=== PATIENT | male | born 1965 | race Caucasian/White ===

== ENCOUNTER 2017-10-15 05:40 | Observation (INO) | payer OTHER ==
--- NOTE | 2017-10-02 10:55 | NUR ---
PATIENT HERE TODAY FOR PREADMISSION APPOINTMENT. PATIENT IS SCHEDULED FOR A RIGHT TOTAL KNEE REPLACEMENT ON 10/15/17. HE STATES HE HAS ATTENDED THE JOINT CLASS AND HAS PHYSICAL THERAPY SET UP FOR AFTER SURGERY. HIS ZANE WILL BE THE ONE TO TRANSPORT HIM HOME WHEN HE IS DISCHARGED AND TO APPOINTMENTS. THEY HAVE FOUR STEPS INTO THE HOME AND A HAND RAIL ON THE RIGHT SIDE GOING UP THE STEPS. THERE ARE NO STEPS INSIDE THE HOME. THEY HAVE A WALK IN SHOWER. WE SPOKE ABOUT GETTING A SHOWER BENCH BEFORE SURGERY. PATIENT WILL LOOK INTO GETTING ONE. HE STATES HE HAS HIS WALKER FROM HIS PAST HIP SURGERIES AND WILL BRING IT THE DAY OF SURGERY. THIS INFORMATION WILL BE SENT TO DR DOWNS OFFICE AND HI PLANNING FOR FURTHER FOLLOW UP.
[~2017-10-15] VITALS: Ht 182.9 cm; Wt 142.4 kg
[~2017-10-15 05:40] MED LIST: BACTRIM DS TAB1 EACH PO; CITALOPRAM HBR20 MG PO; GLIMEPIRIDE4 MG PO; JANUVIA100 MG PO; LANTUS100 UNITS/ SUB-Q; LISINOPRIL10 MG PO; METFORMIN HCL1000 MG PO; SIMVASTATIN40 MG PO; TRAMADOL HCL E300 MG PO; TRICOR145 MG PO; VITAMIN C1000 M2 PO
--- NOTE | 2017-10-15 08:48 | NUR ---
10/15/17 0848 Bozena Gonzalez 0833 PT ARRIVED TO PACU, AWAKE. PT DENIES PAIN OR NAUSEA. PT PLACED SEMI FOWLERS POSITION. 0839 CRYOCUFF PLACED TO RIGHT KNEE. O2 PLACED ON NC AT 2L. CBG 179. BREATHING EVEN AND NON LABORED.
--- NOTE | 2017-10-15 09:16 | NUR ---
PT ARRIVED FROM PACU AT 0916, HAND OFF REPORT TAKEN FROM SOFTWARE PROGRAMMER. PT DENIES PAIN AND NAUSEA. PT AWAKE AND CARING ON CONVERSATION WITH FAMILY AND THIS RN. ASSESSMENT DONE. HEEL PROTECTORS IN PLACE. PIV SALINE LOCKED PT IS TOELRATING PO FLUIDS WELL. PT DEMONSTARTES USE OF IS. SCD'S, CRYO CUFF, AND SALVATORE HOSE IN PLACE. DRESSING CDI. CRACKERS PROVIDED. PT TOLERATS WELL. PLAN OF CARE DISCUSSED WITH PT. PT AND FAMILY VERBALIZE UNDERSTANDING. KNEES ON BED LOCKED. BED RAILS UP. CALL LIGHT WITHIN REACH.
[2017-10-15] MEDS ORDERED: GLIMEPIRIDE2 MG PO (09:46)
--- NOTE | 2017-10-15 10:21 | NUR ---
DR. DOWNS CALLED WITH CBG RESULTS. DR. DOWNS STATES TO CONSULT HOSPITALIST REGARDING BLOOD SURGAR CHECKS AND MEDICAITONS. HOSPITALIST CALLED. ORDERS PLACED FOR CBG CHECKS WITH MEALS AND SLINDING SCALE INSULIN.
--- NOTE | 2017-10-15 11:07 | NUR ---
VITALS DUE. THIS RN TO BEDSIDE. PT REPORTS BEING HUNGRY. DENIES PAIN AND NAUSEA. PT TOLRATING CRACKERS, WATER, AND ICE CREAM. LUNCH ORDER PLACED FOR PT. CRYO CUFF ON, CALL LIGHT WITHIN REACH. FAMILY AT BEDSIDE.
--- NOTE | 2017-10-15 11:08 | NUR ---
Medications reconciled using pharmacy records and patient interview. 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
--- NOTE | 2017-10-15 12:14 | NUR ---
AFTERNOON ASSESSMENT AND VITALS DUE. THIS RN TO BEDSIDE. PT FINISHED WITH LUNCH. INSULIN GIVEN ORDERED (SEE MAR). ASSESSMENT DONE. DRESSING CDI, CRYO CUFF, SCD'S AND SALVATORE HOSE IN PLACE. PT DENIES PAIN AND NAUSEA. PT STATES "i"M READY FOR A NAP. WHILE THIS RN IS CHARTING PT DRIFTS OFF TO SLEEP. SNORING NOTED, O2 DROPS TO 86% ON ROOM AIR. 2L O2 NC APPLIED. PT MAINTAING ABOVE 92% EVEN WHILE SLEEPING. ICE IN CRYO CUFF REPLACED. BED RAILS UP. CALL LIGHT WITHIN REACH.
--- NOTE | 2017-10-15 13:21 | NUR ---
THIS RN TO BEDSIDE WITH PHYSICAL THERPAY. PT APPEARS DIAPHORETIC. BLOOD SURGAR TAKEN BEFORE PT GETS UP WITH PHYSICAL THERAPY. CBG = 236. PT STATES "I'M ALWAYS SWEETY LIKE THIS AT HOME. PT DENIES DIZZINESS OR LIGHTHEADEDNESS. CHARGE NURSE NOTIFIED AND STATES TO CONTINUE TO MONITOR FOR NOW, NO ACTION NEEDED. PT WORKING WITH PHYSICAL THERAPY. PT STATE HE HAS NO REQUESTS OR COMPLAINTS AT THIS TIME.
--- NOTE | 2017-10-15 13:54 | NUR ---
PT RESTING IN BED, WITH TV ON. HE IS ALERT AND ORIENTED, STATES HE HAS NO PAIN. HAS HAD JOINT REPLACEMENT BEFORE, THANKED ME FOR COMING BY, EXTENDED A BLESSING, WILL FOLLOW NEEDED
--- NOTE | 2017-10-15 14:28 | NUR ---
MEDICATIONS DUE. THIS RN TO BEDSIDE. PT ASSISTED WITH ATTEMPTING TO VOID, UNABLE TO DO SO. BLADDER SCANN YEILDS 245 ML. PT CONTINUS TO DRINK WATER. WILL CONTINUE TO MONITOR BLADDER AND VOIDING. MEDICATIONS GIVEN (SEE MAR). WATER REFILLED. PT RESTING WITH EYES CLOSED. O2 DROPS TO 86% WHILE SLEEPING. PT PLACED ON 2L O2 NC. PT MAINTAINING O2 SATURATION ABOVE 92%. CALL LIGHT WITHIN REACH. BED RAILS UP. CRYO CUFF, SCD'S REPLACED AFTER WORK WITH PHYSICAL THERAPY.
--- NOTE | 2017-10-15 14:52 | NUR ---
PATIENT AMBULATED WITH PTHERAPY. PATIENT DID TWO LARGE LAPS IN THE HALLWAY. PATIENT WAS UNABLE TO VOID. BLADDER SCANNED FOR 245ML. PATIENT NOW SITTING UP IN BED. FRESH ICE WATER. CALL LIGHT WITHIN REACH. NO OTHER NEEDS AT THIS TIME.
--- NOTE | 2017-10-15 16:50 | NUR ---
THIS RN TO ROOM FOR VOIDING/BLADDER ASSESSMENT. PT ASSISTED UP AT SIDE OF BED, 1P/SBA, FWW. PT UNABLE TO VOID. BLADDER SCAN INCONSISTANT. CHARGE NURSE CALLED TO ROOM, CHARGE NURSE UNABLE TO OBTAIN BLADDER SCAN. MD CALLED. MD STATES TO PLACE GAMBINO CATHETER. GAMBINO PLACED PER PROTOCOL. URO JET USED. 350ML OBTAINED FROM FOELY CATHETER PLACEMENT. PT TOELRATED WELL. ASSESSMENT DONE. CRYO CUFF, SCDS, SALVATORE HOSE IN PLACE. DRESSING CDI. PT REPORTS 7/10 PAIN (SEE MAR) FOR MEDICATION. BY THE END OF ASSESSMENT PT STATES PAIN IS NOW AT 4/10. PT DENIES NAUSEA AND IS EXCITED FOR DINNER. MEDICATIONS GIVEN (SEE MAR). FAMILY AT BEDSIDE. CALL LIGHT WITHIN REACH. BED RAILSUP.
--- NOTE | 2017-10-15 18:42 | NUR ---
PT HERE FOR R TKA. DRESSING CDI, CRYO CUFF, SCD'S SALVATORE HOSE IN PLACE. PT UP WITH PHYSICAL THERAPY TODAY, AMBULATED X2 AROUND HERRERA. PT REPORTED 7/10 PAIN THIS AFTERNOON WITH GOOD RESOLUTION WITH DILAUDID. SPINAL RESOLVED AND PROTOCOL UP AT 1700. BLOOD SUGAR CHECKS, WITH SLINDING SCALE INSULIN. GAMBINO PLACED FOR INABILITY TO VOID. USES CALL LIGHT APPROPRIATLY.
--- NOTE | 2017-10-15 19:33 | NUR ---
BEDSIDE REPORT RECEIVED FROM MEMO SWANN. PT SNORING, BREATHING EQUAL BILATERALLY, SPO2 97% ON 2L, HR 74. SCDS, CRYO CUFF WITH ICE INPLACE, HEEL PROTECTORS ON. IV SALINE LOCKED. GAMBINO DRAINING. WILL CONTINUE TO MONITOR.
--- NOTE | 2017-10-15 20:40 | NUR ---
PT ASSESSMENT COMPLETE, PT RATES PAIN 7/10 IN RIGHT KNEE WITH PAIN GOAL 7/10, STATES PAIN ONLY WITH MOVEMENT. PILLOW NOTED NEXT TO RIGHT KNEE, PT EDUCATION PROVIDED FOR NO PILLOW UNDER EXTREMITY, PT VERBALIZES UNDERSTANDING. PRN TORADOL ADMINISTERED AT THIS TIME PT DROWSY. DRESSING CDI WITH DENA WRAP, CRYO CUFF WITH ICE, SALVATORE HOSE, SCDS, HEEL PROTECTORS ON. CSM INTACT BUE, BLE. LUNGS CLEAR THROUGHOUT ALL LOBES, SPO2 97% ON 2L OXYGEN WITH SLEEP, CONT. PULSE OX ON. IV FLUSHED WNL. CBG 146, 1 UNIT NOVOLOG ADMINISTERED. CALL LIGHT IN REACH, LIGHTS OFF IN ROOM.
--- NOTE | 2017-10-15 22:09 | NUR ---
CHECKED ON PT, APPEARS TO BE SLEEPING, SNORING, EYES CLOSED, VISIBLE CHEST RISE EQUAL BILATERALLY. SCDS, CRYO CUFF, HEEL PROTECTORS, SALVATORE HOSE IN PLACE. LIGHTS OFF IN ROOM. SPO2 96% ON 2L OXYGEN NC.
--- NOTE | 2017-10-15 23:10 | NUR ---
PT AWAKENS TO RN VOICE WHEN ENTERING ROOM, SPO2 97% ON 2L OXYGEN BY NC. PT RATES PAIN 7/10 IN RIGHT KNEE, PAIN GOAL NOW STATED 4/10. PRN OXYCODONE ADMINISTERED AT THIS TIME. IV ABT ADMINISTERED WNL, SALINE LOCKED. CRYO CUFF REFILLED. PT INSTRUCTED TO KEEP LEGS STRAIGHT, HEEL PROTECTORS, SCDS, CRYO CUFF, SALVATORE HOSE IN PLACE. PT STATES "SLEEPING OFF AND ON", REFUSES EAR PLUGS OFFERED. CALL LIGHT IN REACH, LIGHTS OFF IN ROOM. GAMBINO DRAINING.
--- NOTE | 2017-10-16 02:19 | NUR ---
PT C/O 01/04 PAIN IN KNEE, FOOT, ADJUSTED SALVATORE LEES, PT STATES "THAT WAS IT". CSM INTACT BLE, BUE. DRESSING CDI WITH DENA WRAP, ICE IN CRYO CUFF TO RIGHT KNEE, SCDS AND HEEL PROTECTORS ON. SCHEDULED TORADOL ADMINISTERED. LUNGS CLEAR THROUGHOUT ALL LOBES, SPO2 96% ON 2L OXYGEN FOR SLEEP, CONT. PULSE OX ON. CALL LIGHT IN REACH. WILL CONTINUE TO MONITOR.
--- NOTE | 2017-10-16 02:46 | NUR ---
CALL LIGHT ANSWERED PT RATES PAIN 9/10, PRN OXYCODONE ADMINISTERED AT THIS TIME. CSM INTACT BLE. PT AWAKE, AND ALERT. SCDS SALVATORE HOSE, HEEL PROTECTORS, AND CRYO CUFF IN PLACE. WILL CONTINUE TO MONITOR. CALL LIGHT IN REACH.
--- NOTE | 2017-10-16 04:36 | NUR ---
CHECKED ON PT, EYES CLOSED, SNORING, APPEARS TO BE SLEEPING, VISIBLE CHEST RISE. SPO2 92% ON 2L OXYGEN BY NC. SCDS, HEEL PROTECTORS, SALVATORE HOSE, AND CRYO CUFF ON. LIGHTS OFF IN .
--- NOTE | 2017-10-16 05:24 | NUR ---
DRESSING CDI RIGHT KNEE, CRYO CUFF WITH ICE IN PLACE. SCDS, SALVATORE HOSE AND HEEL PROTECTORS ON. CMS INTACT. PT IN BED THROUGHOUT SHIFT, GAMBINO CATHETER DRAINING SUFFICIENT OUTPUT. IV SALINE LOCKED WNL. SATURATIONS WNL ON 2L OXYGEN W SLEEP, CONT. PULSE OX. PRN OXYCODONE FOR PAIN CONTROL.
--- NOTE | 2017-10-16 06:45 | NUR ---
GAMBINO CATHETER D/C'D WNL AT 0620, PT DIYA WELL. RATES PAIN 6/10 IN RIGHT LEG, PRN OXYCODONE ADMINISTERED, PT STATES "HURTS MORE WITH MOVEMENT". SCDS, HEEL PROTECTORS, SALVATORE HOSE, AND CRYO CUFF IN PLACE. CRYO CUFF REFILLED WITH ICE. PERSONAL SUPPLIES AND CALL LIGHT IN REACH. SPO2 98% ON RA.
--- NOTE | 2017-10-16 07:41 | OR ---
[facility] [address] [facility] [place], [place] [address] Signed DATE OF OPERATION: 10/15/2017 SURGEON: David Mallory MD PREOPERATIVE DIAGNOSIS: DJD right knee. POSTOPERATIVE DIAGNOSIS: DJD right knee. PROCEDURE PERFORMED: Right total knee arthroplasty with computer navigation. HYDRATOR: Cammy Amaro PA-C. Cammy was present in critical positioning, retraction, wound closure. ANESTHESIA: Spinal. BLOOD LOSS: Minimal. TOURNIQUET TIME: 63 minutes. IMPLANTS: Lecompte Triathlon size 7 femur, 6 tibia, 11 mm insert and 35 patella. BRIEF HISTORY: Bravo is a 51-year-old gentleman with progressive worsening of his osteoarthritis. He had undergone bilateral total hips with good relief and wished to proceed with his knee. Once medical clearance was obtained, he was taken to the operating room. After adequate anesthesia, he was placed on operating room table. All downside pressure points well padded. The left leg was placed in well-padded proximal thigh tourniquet and placed on a hip bump the leg was prepped and draped in a standard sterile fashion. Leg was exsanguinated using Esmarch bandage. Tourniquet inflated to 300 mmHg. The standard anterior-posterior curved incision was taken through skin subcutaneous tissue and median parapatellar arthrotomy was performed. The around the posteromedial corner. The infrapatellar fat pad was excised. The ACL was transected as was the anterior horns Electronically Signed By: DAVID MALLORY MD 10/16/17 0741 PATIENT NAME: EDDI LOGAN OPERATIVE REPORT DATE OF : 61 REPORT #: [id number] PHYSICIAN: DAVID MALLORY MD PCP: ELHAM MORATAYA PA-C REPORT IS CONFIDENTIAL AND NOT TO BE RELEASED WITHOUT AUTHORIZATION [facility] [address] [place], [place] [address] Signed of the menisci. The knee was flexed and the navigation guide pinned to the distal femur and the femur was registered with the computer. The distal femoral cutting block, we then pinned in neutral alignment and the distal femoral cut was made. The femur sized to a 7, AP cutting block was then pinned with epicondylar axis. The anterior, posterior, and chamfer cuts were made. The bone was excised as were any meniscal remnants. The navigation guide was then pinned to the proximal tibia and the tibia was registered with the computer. The cutting block was pinned in neutral alignment. The cut was made with care taken to protect the patellar tendon and MCL. Any meniscal remnants removed and posterior osteophytes removed off the femur posterior release performed. The trials were then positioned. Knee was taken through range of motion go from 0-130 degrees. The patella was cut sized and drilled for 35 patella. The pros correction the proximal tibias using was finished using the keel punch. The femoral drill holes were made. The bone surfaces were pulse lavaged, packed with dry Ray-Shemar. The cement was mixed and reached proper consistency, displaced all implants on bone surfaces. Tibia was impacted into position first followed by the femur all excess cement was removed. The polyethylene was snapped into position and the knee was extended and nicely loaded. The patella was clamped and the remaining cement was removed. The cement was allowed to harden. Once it was hardened sufficiently, the knee was flexed and the remaining cement was removed using osteotomes. The knee was pulse lavaged at intervals throughout the procedure. A total of 3 L antibiotic irrigation was used. The periarticular soft tissues were injected with 100 mL ropivacaine and Toradol mixture. The arthrotomy was closed using #2 Stratafix, subcutaneous tissue with 0 Stratafix, and skin with magdy. Wound was dressed with Mepilex Ag dressing, ABD, and Christian wrap. He tolerated the procedure well. All sponge, needle, and instrument counts were correct. David Mallory MD BA/MODL /[id number] cc: Elham Morataya PA-C Copies: ELHAM MORATAYA PA-C Electronically Signed By: DAVID MALLORY MD 10/16/17 0741 PATIENT NAME: EDDI LOGAN OPERATIVE REPORT DATE OF : 61 REPORT #: [id number] PHYSICIAN: DAVID MALLORY MD PCP: ELHAM MORATAYA PA-C REPORT IS CONFIDENTIAL AND NOT TO BE RELEASED WITHOUT AUTHORIZATION [address] [place] [address] Signed ~ Electronically Signed By: DAVID MALLORY MD 10/16/17 0741 PATIENT NAME: EDDI LOGAN OPERATIVE REPORT DATE OF : 61 REPORT #: [id number] PHYSICIAN: DAVID MALLORY MD PCP: ELHAM MORATAYA PA-C REPORT IS CONFIDENTIAL AND NOT TO BE RELEASED WITHOUT AUTHORIZATION
--- NOTE | 2017-10-16 07:53 | NUR ---
MORNING MEDICATIONS AND ASSESSMENT DUE. THIS RN TO BEDSIDE. PT UP WATCHING TV. BLINDS OPEN. PT AWAKE AND ORIENTED. PT COMPLAINTS OF 6-7/10 PAIN THAT IS TOLERABLE. PT DENIES NAUSEA. ASSESSMENT DONE. MEDICATIONS GIVEN (SEE JUL). MD TO BEDSIDE TO EVALUATE PT CONDITION. DRESSING DCI, CRYO CUFF, SALVATORE HOSE, AND SCD'S IN PLACE. PT EATING BREAKFAST, NO REQUESTS OR COMPLAINTS AT THIS TIME. PULSE OX REMAINS ON FOR 2 MORE HOURS. PT O2 SAT AT 93%ON RA. BED RAILS UP. CALL LIGHT WITHIN REACH. PT STATES HE HAS NO ADDITIONAL REQUESTS OR COMPLAINTS AT THIS TIME.
--- NOTE | 2017-10-16 08:23 | NUR ---
PATIENT SITTING UP IN BED. FRESH ICE IN CRYO. SET UP FOR ORAL CARE. WASHCLOTH FOR FACE. CALL LIGHT WITHIN REACH. NO OTHER NEEDS AT THIS TIME.
--- NOTE | 2017-10-16 10:41 | NUR ---
PT CALL LIGHT ON. PT REQUESTS PAIN MEDICATION FOR 5/10 PAIN AFTER WORKING WITH PHYSICAL THERAPY. PT STATES "ITS TIME FOR THOSE PAIN MEDICATION." SEE MAR FOR MEDICATION GIVEN. PT WATCHING TV AND STATES PHYSICAL THERAPY WENT REALLY WELL. PT STAETS HE HAS NO REQUESTS OR COMPLAINTS AT THIS TIME. CALL LIGHT WITHIN REACH.
--- NOTE | 2017-10-16 12:06 | NUR ---
FOCUSSED ASSESSMENT AND MEDICATION DUE. THIS RN TO BEDSIDE. PT UP TO CHAIR EATING LUNCH. PT REPORTS 3-4/10 PAIN THAT "ISN'T THAT BAD." PT DENIES NAUSEA. DRESSING CDI, CRYO CUFF INPLACE. ASSESSMENT DONE. MEDICATIONS GIVEN ORDERED (SEE MAR). PT WATCHING TV AND FINISHING LUNCH. CALL LIGHT WITHIN REACH.
--- NOTE | 2017-10-16 14:37 | NUR ---
MEDICATION DUE. THIS RN TO BEDSIDE. PT REPORTS 4/10 PAIN THAT IS "JUST FINE." PT STATES HE WILL NOTIFY RN WHEN HE IS READY FOR MORE OXYCODONE. SCHEDULED MEDICATION GIVEN (SEE MAR). FAMILY AT BEDISDE. PT EATING SNACK FROM HOME ([place]). CRYO CUFF IN PLACE. SCD'S ON. CALL LIGHT WITHIN REACH. BED RAILS UP. FAMILY AT BEDSIDE.
--- NOTE | 2017-10-16 14:47 | NUR ---
PT HAS JUST FINISHED P.T. SESSION. HE STATED THAT THE PAIN IS MUCH MORE INTENSE THAN HIS HIP. HE SAID HE EXPECTED IT TO BE MORE, SEEMS TO HAVE TAKEN PT BY SURPRISE WITH THE STRENGTH OF HIS PAIN. HE HAS IT UNDER CONTROL, PLANS TO BE DC'D TOMORROW. EXTENDED A BLESSING, WILL FOLLOW NEEDED
--- NOTE | 2017-10-16 15:18 | NUR ---
PT CALL LIGHT ON. PT REQUESTS PAIN MEDICATION FOR 8/10 PAIN IN HIS RIGHT KNEE. THIS RN TO ROOM. SEE MAR FOR PAIN MEDICATIONS GIVEN. PT EDUCATION PROVIDED R/T PAIN CONTROL. PT VERBALIZES UNDERSTANDING. PT WATCHING TV. FAMILY AT BEDSIDE. NO REQUESTS OR COMPLAINTS AT THIS TIME. CALL LIGHT WITHIN REACH. CRYO CUFF AND SCDS IN PLACE.
--- NOTE | 2017-10-16 15:45 | NUR ---
PATIENT SITTING UP IN BED. FAMILY MEMBERS IN ROOM. RN IN ROOM. CALL LIGHT WITHIN REACH. NO OTHER NEEDS AT THIS TIME.
--- NOTE | 2017-10-16 17:05 | NUR ---
EVEN MEDICATIONS AND ASSESSMENT DUE. THIS RN TO BEDSIDE. PT BLOOD SUGAR NOTED TO BE HIGH. PT HAS SNACKS AT BEDSIDE (GRANOLOA, CANDY) THAT ARE VERY HIGH IN SUGAR. PT EDUCATION DONE. PT VERBALIZES UNDERSANDING AND DEMONSTARTES GOOD DIET CHOICES TO FAMILY WHEN OFFERED ICE CREAM SUNDAYS. PT REPORTS IMPROVING PAIN NOW AT 6/. ASSESSMENT DONE. DRESSIN CDI, CMS INTACT. ICE REPLACED IN CRYO CUFF. HEEL PRTOECTORS, SALVATORE LEES, SCD'S IN PLACE. MEDICATIONS GIVEN ORDERED (PT FINISHING WITH Q[place] SNACK AND ANTICIPATING DINNER). FAMILY AT BEDSIDE. WATER REFILLED. BED RAILSUP. CALL LIGHT WITHIN REACH.
--- NOTE | 2017-10-16 17:56 | NUR ---
PT HERE FOR R TKA, 1ST DAY POST OP. ADA DIET. BLOOD SUGARS CHECKS VARYING WIDLY.NUTRITION AND DM EDUCATIO DONE TODAY R/T HIGH SUGAR SNACKS AT BEDSIDE. PHYSICAL THERAPY X2 TODAY. PT TOLERATED WELL. DRESSING CDI. PRN OXYCODONE FOR 4-8/10 PAIN. PT O2 DROPS AT NIGHT, MAY NEED O2 BY NC. USING CALL LIGTH APPROPRIATLY. ANTICIPATING DISCHARGE TOMORROW, PT WOULD LIKE TO LEAVE "ARROUND 1PM" WITH .
--- NOTE | 2017-10-16 18:53 | NUR ---
PT CALL LIGHT ON. PT REPORTING 8/10 PAIN. SEE MAR FOR MEDICATION GIVEN. PT WATCHING TV. NO ADDITIONAL REQUESTS OR COMPLAINTS. CALL LIGTH WITHIN REACH.
--- NOTE | 2017-10-16 19:10 | NUR ---
BEDSIDE REPORT RECEIVED FROM MEMO SWANN. PT APPEARS TO BE SLEEPING AT THIS TIME, EYES CLOSED, SNORING, BREATHING NON-LABORED. SCDS, SALVATORE HOSE, HEEL PROTECTORS AND CRYO CUFF IN PLACE. WILL CONTINUE TO MONITOR.
--- NOTE | 2017-10-16 21:11 | NUR ---
IN PT ROOM FOR ASSESSMENT, PT RATES PAIN 5/10 IN RIGHT KNEE, C/O SOME PAIN AT SCAR IN RIGHT CALF, MID CALF POSTERIOR, ASSESSED WITH PETROLEUM LABORATORY TECHNICIAN LISSET, TEMPERATURE WARM BILATERALLY, CSM INTACT. DRESSING CDI. SCDS OFF FOR 10 MIN BREAK, PT STATES "THAT FEELS BETTER". SCHEDULED TORADOL ADMINISTERED AT THIS TIME. CRYO CUFF REFILLED WITH ICE, ON RIGHT KNEE. SALVATORE LEES, SCDS, HEEL PROTCTORS REAPPLIED. CALL LIGHT IN REACH. URINAL EMPTIED. NO ADDL REQUESTS AT THIS TIME.
--- NOTE | 2017-10-16 23:38 | NUR ---
PT WATCHING TV, AWAKE, C/O 7/10 PAIN IN RIGHT KNEE AT CENTER OF KNEE. PRN OXYCODONE ADMINISTERED AT THIS TIME. CRYO CUFF TO RIGHT KNEE WITH ICE, SCDS, HEEL PROTECTORS, SALVATORE HOSE IN PLACE BIALTERALLY. PT ON 2L OXYGEN BY NC WITH SLEEP. CALL LIGHT IN REACH, NO REQUESTS AT THIS TIME.
--- NOTE | 2017-10-17 00:25 | NUR ---
CHECKED ON PT, PT AWAKE, LYING IN BED, SBA TO RESTROOM, PT INSTRUCTED TO USE CALL LIGHT WHEN FINISHED, VERBALIZED UNDERSTANDING.
--- NOTE | 2017-10-17 00:39 | NUR ---
CALL LIGHT ANSWERED, SBA BACK TO BED, PT HAD LIQUID BM AND 325 ML VOID. IVF INFUSING.
--- NOTE | 2017-10-17 01:40 | NUR ---
PT APPEARS TO BE SLEEPING, SNORING, 2L OXYGEN BY NC ON. SCDS, HEEL PROTECTORS, CRYO CUFF, AND SALVATORE HOSE IN PLACE. LIGHTS OFF IN ROOM.
--- NOTE | 2017-10-17 02:40 | NUR ---
PT SLEEPING, SNORING, AWAKENS TO VOICE FOR SCHEDULED DENTURE TECHNICIAN. RATES PAIN 7/10 IN RIGHT KNEE, DRESSING C/D/I, CSM INTACT BLE, BUE, SCDS, SALVATORE HOSE, HEEL PROTECTORS, CRYO CUFF IN PLACE. CRYO CUFF FILLED WITH ICE. LUNGS CLEAR THROUGHOUT, 2L OXYGEN BY NC ON FOR SLEEP. BOWEL TONES ACTIVE X 4, ABD SOFT, HR REGULAR RHYTHM. URINAL EMPTIED AT THIS TIME. CALL LIGHT AND PERSONAL SUPPLIES IN REACH, LIGHTS OFF IN ROOM.
--- NOTE | 2017-10-17 05:00 | NUR ---
CHECKED ON PT, AWAKE, USING INCENTIVE SPIROMETER. REQUESTING PRN PAIN MEDICATIONS, RATES PAIN 5-6/10 IN RIGHT KNEE. PRN OXYCODONE ADMINISTERED. CRYO CUFF WITH ICE TO RIGHT KNEE, SCDS, SALVATORE HOSE, HEEL PROTECTORS ON. URINAL EMPTIED AT THIS TIME, NO ADDL REQUESTS. CALL LIGHT IN REACH. 2L OXYGEN BY NC ON PT FOR SLEEP.
--- NOTE | 2017-10-17 05:53 | NUR ---
PAIN WELL CONTROLLED WITH PRN OXYCODONE, SCHEDULED TORADOL. CSM INTACT, DRESSING CDI, SALVATORE HOSE, SCDS, HEEL PROTECTORS, CRYO CUFF ON RIGHT KNEE. PT DENIES NUASEA. QUANTITY SUFFICIENT VOIDS WITH URINAL. PT USING INCENTIVE SPIROMETER. 2L OXYGEN WITH SLEEP.
[2017-10-17] MEDS ORDERED: XARELTO10 MG PO (08:09)
[2017-10-17] MEDS ORDERED: ONDANSETRON HCL4 MG PO (08:11)
[2017-10-17] MEDS ORDERED: NEURONTIN300 MG PO (08:11)
[2017-10-17] MEDS ORDERED: OXYCODONE HCL5 MG PO (08:13)
--- NOTE | 2017-10-17 08:15 | NUR ---
PATIENT SITTING IN BED. RT KNEE DRESSING IN PLACE. PATIENT NOT NEEDING ANY PAIN MEDICATION AT THIS TIME.
--- NOTE | 2017-10-17 08:20 | NUR ---
PATIENT SITTING UP IN BED. RN IN ROOM. FRESH ICE WATER AND COFFEE. FRESH ICE IN CRYO. CALL LIGHT WITHIN REACH. NO OTHER NEEDS AT THIS TIME.
--- NOTE | 2017-10-17 11:41 | NUR ---
PATIENT SITTING UP IN CHAIR. RN IN ROOM. NO OTHER NEEDS AT THIS TIME.
--- NOTE | 2017-10-17 12:55 | NUR ---
PATIENT BEING DC'D TO HOME AND IS DOING WELL PATIENT'S PAIN HAS BEEN UNDERCONTROL WITH PRESCRIBED 15MG OXYCODONE. PATIENT ATE 100% BREAKFAST AND LUNCH AND TAKING PO FLUIDS WELL. PATIENT GIVEN ALL DC AND F/U INSTRUCTIONS AND HAS VERBALIZED UNDERSTANDING. RT KNEE DRESSING CDI. PATIENT'S SPOUSE IS DRIVING PATIENT HOME.
--- NOTE | 2017-10-17 13:29 | NUR ---
PT WAS SITTING IN CHAIR, "RECOVERING" HE PUT IN FROM P.T. WAITING FOR DC, PT SEEMED PLEASED WITH CARE AND DID MENTION THAT PAIN WAS STRONGER WITH KNEE REPLACEMENT THAN HIS PREVIOUS HIP REPLACEMENT. THANKED ME FOR VISITING, I THEN EXTENDED A BLESSING. WILL FOLLOW NEEDED
--- NOTE | 2017-10-18 07:37 | NUR ---
FAXED CHART NOTES AND ORDER FOR PT TO [facility] OP PT, INCLUDING FACESHEET, ORDER, H AND P X 2, OP NOTE, PROG NOTE, DC PACKET, PT AND OT EVAL AND NOTES. RECIEVED FAX CONFIRMATION. SPOKE WITH SHAYY FROM [facility] OP PT.
== END 2017-10-17 12:55 | disposition home or self-care (01) ==
LOC: OPS 05:40 → DS 05:40 → OPS 06:45 → DS 06:45 → MS 08:30 → OPS 08:30 → MS 08:30
PROVIDERS: ADMIT Specialist
PROC: 8E0YXBZ Computer Assisted Procedure of Lower Extremity (ICD-10-PCS; 2017-10-15)
PROC: 3E0T3BZ Introduction of Anesthetic Agent into Peripheral Nerves and Plexi, Percutaneous Approach (ICD-10-PCS; 2017-10-15)
PROC: 3E0T33Z Introduction of Anti-inflammatory into Peripheral Nerves and Plexi, Percutaneous Approach (ICD-10-PCS; 2017-10-15)
PROC: 0SRC0J9 Replacement of Right Knee Joint with Synthetic Substitute, Cemented, Open Approach (ICD-10-PCS; principal; 2017-10-15 06:45)
DX: M17.11 Unilateral primary osteoarthritis, right knee (principal); G89.18 Other acute postprocedural pain; I10 Essential (primary) hypertension; E11.9 Type 2 diabetes mellitus without complications; E78.5 Hyperlipidemia, unspecified; E66.9 Obesity, unspecified; F39 Unspecified mood [affective] disorder; Z79.4 Long term (current) use of insulin; Z79.891 Long term (current) use of opiate analgesic; Z79.899 Other long term (current) drug therapy; Z96.643 Presence of artificial hip joint, bilateral; Z86.14 Personal history of Methicillin resistant Staphylococcus aureus infection; Z87.891 Personal history of nicotine dependence; Z68.41 Body mass index [BMI] 40.0-44.9, adult
CPT/HCPCS: 01402; 36415; 51798; 64445; 64447; 76942; 80048; 85025; 96374; 96375; 96376; 97110; 97116; 97161; 97165; C1713; C1776; G0378; G8978; G8979; G8987; G8988; G8989; J0690; J1100; J1170; J1885; J2250; J2274; J2370; J2704; J2795; J3010; J3370; J7050; J7120

== ENCOUNTER 2020-01-19 09:50 | Day surgery (SDC) | payer OTHER ==
[~2020-01-19] VITALS: Ht 182.9 cm; Wt 130.6 kg
[~2020-01-19 09:50] MED LIST changes: +GLIMEPIRIDE2 MG PO; +NEURONTIN300 MG PO; +ONDANSETRON HCL4 MG PO; +OXYCODONE HCL5 MG PO; +XARELTO10 MG PO
[2020-01-19] MEDS ORDERED: DICLOFENAC SODI75 MG PO (12:57)
[2020-01-19] MEDS ORDERED: HYDROCODON-ACE1 EA11 PO (12:57)
--- NOTE | 2020-01-19 13:32 | NUR ---
01/19/20 1332 Ambar Huber 1256 PT ARRIVED IN PACU NON RESPONSIVE TO NOXIOUS STIMULI. RN DOING CHIN LIFT. 1300 PT RESPONSIVE. 1310 OXYGEN REMOVED. SATS 95% ON RA. BLOOD SUGAR 100. L KNEE ELEVATED AND ICE PLACED. 1325 TO DS. REPORT GIVEN TO RN. PT TAKING SIPS OF WATER WITH NO C/O'S.
--- NOTE | 2020-01-20 07:37 | OR ---
[facility] [address] [facility] [place] [address] Signed DATE OF OPERATION: 01/19/2020 SURGEON: David Mallory MD PREOPERATIVE DIAGNOSIS: Lateral meniscus tear, left knee. POSTOPERATIVE DIAGNOSIS: Lateral meniscus tear, left knee. PROCEDURE PERFORMED: Left knee arthroscopy with partial lateral meniscectomy. SURGEON: David Mallory MD NATIONAL SALES ASSOCIATE: BARBRA Chavez ANESTHESIA: General. BLOOD LOSS: Minimal. BRIEF HISTORY: Bravo is a 54-year-old gentleman with history of pain locking the left knee. The MRI showed a large lateral meniscus tear. Risks and benefits of operative treatment were discussed with him. He elected to proceed. DESCRIPTION OF PROCEDURE: Once consent was obtained, he was taken to the operating room. After adequate anesthesia, he was placed on operating room table. All downside pressure points were well padded. The right leg was flexed, abducted, and externally rotated. He did have extremely poor range of motion of his right hip. His left leg was placed in well-padded proximal thigh leg allison with no tourniquet. The portal sites were pre-injected using 0.25% Marcaine with epinephrine under an alcohol prep. The leg was then prepped and draped in a standard sterile fashion. Standard inferolateral and superolateral portals were made. The scope was introduced. Electronically Signed By: DAVID MALLORY MD 01/20/20 0737 PATIENT NAME: EDDI LOGAN OPERATIVE REPORT DATE OF : 61 REPORT #: [id number] PHYSICIAN: DAVID MALLORY MD PCP: MURALI YOUNG PA-C REPORT IS CONFIDENTIAL AND NOT TO BE RELEASED WITHOUT AUTHORIZATION [facility] [address] [place], [place] [address] Signed ARTHROSCOPIC FINDINGS: The patellofemoral joint was intact with only mild chondromalacia. Medial and lateral gutters were clear. There was extensive synovitis in the lateral gutter. ACL and PCL were intact. Medial compartment was intact. Lateral compartment showed one small area of grade 4 chondromalacia in the posterior lateral tibia. The femur was relatively good. The meniscus was macerated and torn from the posterior horn all the way anteriorly to the anterolateral corner. DESCRIPTION OF OPERATION: Standard inferomedial portal was established after localization using a spinal needle. The straight and curved biters were then used to trim the meniscus back to a stable rim. In several areas this was near completely through into the capsule. The meniscus was shaved down and smoothed then feathered. We then removed all debris using the suction. The scope was then withdrawn. Portals were closed with 3-0 nylon and dressed with Adaptic, ABD and Christian wrap. He tolerated the procedure well. All sponge, needle, and instrument counts were correct. David Mallory MD BA/CITLALIL /[id number] Copies: ~ Electronically Signed By: DAVID MALLORY MD 01/20/20 0737 PATIENT NAME: EDDI LOGAN OPERATIVE REPORT DATE OF : 61 REPORT #: [id number] PHYSICIAN: DAVID MALLORY MD PCP: MURALI YOUNG PA-C REPORT IS CONFIDENTIAL AND NOT TO BE RELEASED WITHOUT AUTHORIZATION
== END 2020-01-19 14:30 | disposition home or self-care (01) ==
LOC: DS 09:50
PROVIDERS: Specialist
PROC: 0SBD4ZZ Excision of Left Knee Joint, Percutaneous Endoscopic Approach (ICD-10-PCS; principal; 2020-01-19 10:45)
DX: S83.282A Other tear of lateral meniscus, current injury, left knee, initial encounter (principal); M65.862 Other synovitis and tenosynovitis, left lower leg; M94.262 Chondromalacia, left knee; E11.9 Type 2 diabetes mellitus without complications; I10 Essential (primary) hypertension; E78.00 Pure hypercholesterolemia, unspecified; G47.30 Sleep apnea, unspecified; Z79.899 Other long term (current) drug therapy; Z79.84 Long term (current) use of oral hypoglycemic drugs; Z99.89 Dependence on other enabling machines and devices; Z87.891 Personal history of nicotine dependence
CPT/HCPCS: 01400; J0690; J1885; J2001; J2405; J2704; J3010; J7121

== ENCOUNTER 2021-11-28 12:01 | Emergency (ER) | payer OTHER ==
[~2021-11-28] VITALS: Ht 182.9 cm; Wt 126.7 kg
[~2021-11-28 12:01] MED LIST changes: +DICLOFENAC SODI75 MG PO; +HYDROCODON-ACE1 EA11 PO
--- OUTSIDE RECORDS SUMMARY | 2021-11-28 12:02 | XMS ---
PreManage Notification: EDDI LOGAN Security Officer Captain Events No recent Security Events currently on file CRITERIA MET - [facility] CARE PROVIDERS MURALI YOUNG Physician Mining Teacher Current PHONE: [phone] [facility] has no Care Guidelines for this patient. EPaul VISIT COUNT (12 MO.) 1 NATALY Arvizu TOTAL 1 NOTE: Visits indicate total known visits. ED/UCC VISIT TRACKING (12 MO.) 11/28/2021 12:01 [facility] Sun OR TYPE: Emergency COMPLAINT: - L FLANK PAIN INPATIENT VISIT TRACKING (12 MO.) No inpatient visits to display in this time frame [id number]
== END 2021-11-28 13:50 | disposition home or self-care (01) ==
LOC: ED 12:01
DX: R10.9 Unspecified abdominal pain (principal); R19.7 Diarrhea, unspecified; E86.0 Dehydration; E83.42 Hypomagnesemia; E11.9 Type 2 diabetes mellitus without complications; I10 Essential (primary) hypertension; Z79.4 Long term (current) use of insulin; Z79.899 Other long term (current) drug therapy
CPT/HCPCS: 36415; 80053; 81001; 82553; 83735; 85025; 99284

== ENCOUNTER 2022-01-14 10:55 | Emergency (ER) | payer OTHER ==
[~2022-01-14] VITALS: Ht 182.9 cm; Wt 126.7 kg
--- OUTSIDE RECORDS SUMMARY | 2022-01-14 10:58 | XMS ---
PreManage Notification: EDDI LOGAN Security Charge Machine Operator Events No recent Security Events currently on file CRITERIA MET - [facility] CARE PROVIDERS MURALI YOUNG Physician Muck Operator Current PHONE: [phone] [facility] has no Care Guidelines for this patient. EPaul VISIT COUNT (12 MO.) 2 NATALY Arvizu TOTAL 2 NOTE: Visits indicate total known visits. ED/UCC VISIT TRACKING (12 MO.) 01/14/2022 10:55 [facility] Sun OR TYPE: Emergency COMPLAINT: - FLANK PAIN 11/28/2021 12:01 [facility] Sun OR TYPE: Emergency COMPLAINT: - L FLANK PAIN DIAGNOSES: - Diarrhea, unspecified - Essential (primary) hypertension - Dehydration - Type 2 diabetes mellitus without complications - Hypomagnesemia - prison (current) use of insulin - Unspecified abdominal pain - Other terminal clerk (current) drug therapy INPATIENT VISIT TRACKING (12 MO.) No inpatient visits to display in this time frame [id number]
[2022-01-14] MEDS ORDERED: PREDNISONE20 MG PO (16:07)
[2022-01-14] MEDS ORDERED: HYDROCODON-ACE1 EA10 PO (16:07)
== END 2022-01-14 16:55 | disposition home or self-care (01) ==
LOC: ED 10:55
DX: T78.3XXA Angioneurotic edema, initial encounter (principal); R10.9 Unspecified abdominal pain; M47.816 Spondylosis without myelopathy or radiculopathy, lumbar region; E11.9 Type 2 diabetes mellitus without complications; I10 Essential (primary) hypertension; Z79.4 Long term (current) use of insulin; Z79.84 Long term (current) use of oral hypoglycemic drugs; Z79.899 Other long term (current) drug therapy
CPT/HCPCS: 36415; 74176; 80053; 81001; 85025; 96374; 96375; 99284-25; J1885; J2405

== ENCOUNTER 2022-03-08 08:47 | Day surgery (SDC) | payer OTHER ==
[~2022-03-08] VITALS: Ht 182.9 cm; Wt 130.9 kg
[~2022-03-08 08:47] MED LIST changes: +HYDROCODON-ACE1 EA10 PO; +PREDNISONE20 MG PO
--- NOTE | 2022-03-08 10:05 | NUR ---
0915: PATIENT BRUSHED TEETH WITH CHLORHEXIDINE ORAL RINSE. 0950: BILATERAL NOSTRILS SWABBED.
[2022-03-08] MEDS ORDERED: XARELTO10 MG PO (13:47)
[2022-03-08] MEDS ORDERED: SENNA LAX8.6 MG PO (13:48)
[2022-03-08] MEDS ORDERED: CEFPROZIL500 MG PO (13:48)
[2022-03-08] MEDS ORDERED: OXYCODONE HCL5 MG PO (13:48)
[2022-03-08] MEDS ORDERED: DICLOFENAC SODI75 MG PO (13:48)
--- NOTE | 2022-03-08 14:10 | NUR ---
03/08/22 1410 Ambar Huber 1345 PT ARRIVED IN PACU WIDE AWAKE CRACKING JOKES WITH STAFF. ON QUE IN PLACE AND SET AT 4ML/HR. 1355 PT'S OWN CRYO CUFF PLACED ON L KNEE. BLOOD SUGAR 166. 1400 DR AT BEDSIDE. 1405 TAKING SIPS OF WATER. 1410 SNORING. REU.
--- NOTE | 2022-03-08 14:51 | NUR ---
1425: PATIENT BACK IN DAY SURGERY ROOM FROM PACU. RATES PAIN 2/10 IN LEFT KNEE. LEFT KNEE DRESSING CDI. CRYOCUFF TO LEFT KNEE. IV SITE WNL. VS CHECKED. TOLERATING ICE WATER. LUNCH ORDERED. PATIENT ABLE TO SLIGHTLY MOVE BILATERAL LEGS, BUT NOT WIGGLE TOES. LEFT TOES WARM AND PINK. CAP REFILL TO LEFT TOES WNL. AT BEDSIDE. CALL LIGHT WITHIN REACH.
--- NOTE | 2022-03-08 17:49 | NUR ---
1540: VS CHECKED. PATIENT ABLE TO MOVE TOES NOW, BUT STILL STATES HE FEELS SOME OF THE SPINAL STILL ON BOARD. PATIENT TOLERATED LUNCH. STATES PAIN MINIMAL. LEFT KNEE DRESSING CDI. CRYOCUFF TO LEFT KNEE. CALL LIGHT WITHIN REACH. 1630: PT HERE WORKING WITH PATIENT. 1730: PATIENT FINISHED WITH PT. PATIENT PASSED PT. VS CHECKED. PATIENT ASSISTED UP TO BATHROOM WITH WALKER. GAIT STEADY. VOID PER URINAL. GAIT STEADY BACK TO ROOM. DR. DOWNS UPDATED ON PATIENT STATUS. ORDER RECEIVED FOR PATIENT DISCHARGE. 1738: ANCEF GIVEN. IV DC'D WNL. TIP INTACT. DRESSING APPLIED. DISCHARGED INSTRUCTIONS GIVEN TO PATIENT AND . PATIENT DISCHARGED TO HOME VIA WHEELCHAIR WITH .
--- NOTE | 2022-03-10 06:53 | OR ---
[facility] [address] [place], [place] [address] Signed DATE OF OPERATION: 03/08/2022 SURGEON: David Mallory MD PREOPERATIVE DIAGNOSIS: Degenerative joint disease, left knee. POSTOPERATIVE DIAGNOSIS: Degenerative joint disease, left knee. PROCEDURE PERFORMED: Left total knee arthroplasty with Favian. BLOWING ENGINEER: Cammy Amaro PA-C. Cammy was present and critical for all portions of the procedure. ANESTHESIA: Spinal. BLOOD LOSS: 165 mL. TOURNIQUET TIME: Zero. IMPLANTS: [place] Triathlon size 5, 9 mm polyethylene and 35 patella. BRIEF HISTORY: Preston is a 56-year-old gentleman with progressive worsening of lateral arthritis. He had progressive valgus deformity. Risks and benefits of the operative treatment were discussed and he elected to proceed. DESCRIPTION OF PROCEDURE: Once consent was obtained, he was taken to the operating room. After adequate anesthesia, he was placed on the operating room table on a hip bump. The leg was prepped and draped in a standard sterile fashion. Standard anterior approach through a straight incision was taken through the skin and subcutaneous tissue. The mid vastus arthrotomy was performed and the infrapatellar fat pad was excised. The MCL was Electronically Signed By: DAVID MALLORY MD 03/10/22 0653 PATIENT NAME: PRESTON LOGAN OPERATIVE REPORT DATE OF : 61 REPORT #: [id number] PHYSICIAN: DAVID MALLORY MD PCP: MURALI YOUNG PA-C REPORT IS CONFIDENTIAL AND NOT TO BE RELEASED WITHOUT AUTHORIZATION [facility] [address] [place], [place] [address] Signed elevated as a sleeve around the posteromedial corner. The anterior horns of the menisci were transected. The ACL was transected. The PCL was found to be intact. The knee was then flexed. It was quite tight laterally, so we did go ahead and cut the patella early and placed a patellar shield on it to allow better mobilization. Once this was accomplished, the navigation array was placed in the medial femoral condyle along with the checkpoint. Checkpoint was placed in the proximal tibia and the tibial computer ray was placed percutaneously. The leg was then registered with the computer as was the fine anatomic points of the knee. Varus-valgus testing was undertaken. He was pretty much even with just a little bit of tightness laterally. We adjusted the femur rotation for that and the robot was brought in and the four straight cuts were made with care taken to protect the patellar tendon and MCL. The 2 angle cuts were then made. The remaining osteophytes were removed and the posterior osteophytes removed off the femur and posterior release was performed. The trials were then placed and the knee was taken from 0-125 degrees with good stability throughout. He did reach full extension. The patella was then sized and drilled for a 35 mm patella. The distal femoral drill holes were made in the proximal tibia was finished using the keel punch. He had excellent bone, so a non-cemented prosthesis was obtained. The tibia was impacted into position first, followed by the polyethylene. The femur was then impacted until it was well seated. The knee was extended and nicely loaded. The patella was then clamped and the clamp was removed. The patella was noted to track well. The wound was then copiously irrigated with normal saline under pulse lavage. Irrisept soak was made in the middle, 3 L total were used. An on-Q pain pump was percutaneously placed into the adductor canal from the suprapatellar pouch. The arthrotomy was then closed using #2 Stratafix, 0-Quill for the subcutaneous tissue, and magdy for the skin. The wound was dressed with an Acticoat 7 dressing, ABD, and Christian wrap. He tolerated the procedure well. All sponge, needle, and instrument counts were correct. David Mallory MD BA/MODL /[id number] Electronically Signed By: DAVID MALLORY MD 03/10/22 0653 PATIENT NAME: PRESTON LOGAN OPERATIVE REPORT DATE OF : 61 REPORT #: [id number] PHYSICIAN: DAVID MALLORY MD PCP: MURALI YOUNG PA-C REPORT IS CONFIDENTIAL AND NOT TO BE RELEASED WITHOUT AUTHORIZATION [address] [place], [place] [address] Signed Copies: ~ Electronically Signed By: DAVID MALLORY MD 03/10/22 0653 PATIENT NAME: DOREENPRESTON FRIDA OPERATIVE REPORT DATE OF : 61 REPORT #: [id number] PHYSICIAN: DAVID MALLORY MD PCP: MURALI YOUNG PA-C REPORT IS CONFIDENTIAL AND NOT TO BE RELEASED WITHOUT AUTHORIZATION
== END 2022-03-08 17:38 | disposition home or self-care (01) ==
LOC: DS 08:47
PROVIDERS: ATTEND Specialist
PROC: 0SRD0J9 Replacement of Left Knee Joint with Synthetic Substitute, Cemented, Open Approach (ICD-10-PCS; principal; 2022-03-08 12:15)
DX: M17.12 Unilateral primary osteoarthritis, left knee (principal); E11.9 Type 2 diabetes mellitus without complications; I10 Essential (primary) hypertension; E78.5 Hyperlipidemia, unspecified; E11.42 Type 2 diabetes mellitus with diabetic polyneuropathy; G47.33 Obstructive sleep apnea (adult) (pediatric)
CPT/HCPCS: 64447; 76942; 97110; 97116; 97161; C1776; J0360; J0690; J1100; J1885; J2001; J2250; J2704; J2795; J7121

== ENCOUNTER 2024-04-29 18:01 | Emergency (ER) | payer OTHER ==
[~2024-04-29] VITALS: Ht 182.9 cm; Wt 130.0 kg
[~2024-04-29 18:01] MED LIST changes: +CEFPROZIL500 MG PO; +SENNA LAX8.6 MG PO
[2024-04-29] MEDS ORDERED: KETOROLAC TROMETHAMINE 15 MG/ML VIAL IV ONE (18:45)
[2024-04-29] MEDS ORDERED: TRAMADOL HCL50 MG PO (18:50)
[2024-04-29] MEDS ORDERED: ICOSAPENT ETHYL1 GM PO (18:50)
[2024-04-29 18:52] LABS: BASOPHILS 0.3 % (0-2); HEMATOCRIT 40.3 % (35.0-50.0); HEMOGLOBIN 13.9 g/dL (12.0-18.0); LYMPHOCYTES 1.8 % (24-44); MCHC 34.4 g/dl (30-36); MCV 93.1 fl (81-99); NEUTROPHILS 93.9 % (39-80); PLATELET COUNT 107 K/uL (140-440); RBC 4.33 M/ul (4.3-5.7); RDW 13.3 (10.5-15.0)
[2024-04-29 19:06] LABS: ALBUMIN 3.4 g/dL (3.4-5.0); ALBUMIN/GLOBULIN RATIO 0.79 (1.1-2.4); ANION GAP 19.4 (7-21); BILIRUBIN, TOTAL 1.4 ng/dL (0.2-1.0); BUN/CREATININE RATIO 18.71 (6.0-28.6); CALCIUM 8.7 mg/dL (8.5-10.1); CREATININE, SERUM 1.87 mg/dL (0.70-1.30); POTASSIUM 4.4 mmol/L (3.5-5.1); PROTEIN, TOTAL 7.7 g/dL (6.4-8.2)
[2024-04-29 19:35] LABS: BILIRUBIN, URINE NEGATIVE (negative); BLOOD/HGB, URINE LARGE (Negative); KETONE, URINE SMALL (Negative); LEUK ESTERASE, URINE NEGATIVE (negative); NITRITE, URINE NEGATIVE (negative); PH, URINE 5.5 (5-7)
[2024-04-29 19:44] LABS: MAGNESIUM 2.1 mg/dL (1.8-2.4)
[2024-04-29] MEDS ORDERED: SODIUM CHLORIDE 0.9% 1,000 ML IV ONE (19:45)
[2024-04-29 19:48] LABS: CASTS, URINE GRANULAR 1+ \\lpf; COLLECTION TYPE, URINE CLEAN CATCH; CRYSTALS, URINE AMORPHOUS URATES 2+ (0-1+); RED BLOOD CELLS, URINE 0-1 /hpf (0-5)
[2024-04-29 19:49] LABS: BACTERIA, URINE 1+ /hpf (negative); EPITHELIAL CELLS, URINE SQUAMOUS 1+ /lpf (0-1+); REFLEX CULTURE, URINE Yes (No)
[2024-04-29] MEDS ORDERED: CEFTRIAXONE/SODIUM CHLORIDE 2 GM/100 ML PIGGYBACK IV ONE (20:15)
[2024-04-29] MEDS ORDERED: COLCHICINE 0.6 MG TAB PO ONE ×2 (20:15→21:00)
[2024-04-29] MEDS ORDERED: HYDROCODONE BIT/ACETAMINOPHEN 5/325 MG 1 TAB HOME.PACK PO ONE (20:45)
[2024-04-29] MEDS ORDERED: CEFDINIR 300 MG HOME.PACK PO ONE (20:45)
[2024-04-29] MEDS ORDERED: methylPREDNISolone 4 MG HOME.PACK PO ONE (20:45)
[2024-04-29] MEDS ORDERED: COLCHICINE0.6 M1 PO (20:47)
[2024-04-29] MEDS ORDERED: CEFDINIR300 MG PO (20:47)
[2024-04-29] MEDS ORDERED: HYDROCODON-ACE1 EA10 PO (20:47)
[2024-04-29 21:20] VITALS: BP 127/65
== END 2024-04-29 21:37 | disposition home or self-care (01) ==
LOC: ED 18:01
PROVIDERS: Emergency Medicine; Family Medicine
DX: M51.362 Other intervertebral disc degeneration, lumbar region with discogenic back pain and lower extremity pain (principal); N39.0 Urinary tract infection, site not specified; M10.9 Gout, unspecified; E11.9 Type 2 diabetes mellitus without complications; I10 Essential (primary) hypertension; Z79.01 Long term (current) use of anticoagulants; Z79.1 Long term (current) use of non-steroidal anti-inflammatories (NSAID); Z79.899 Other long term (current) drug therapy; Z79.84 Long term (current) use of oral hypoglycemic drugs; Z79.4 Long term (current) use of insulin
CPT/HCPCS: 36415; 72131; 74177; 80053; 81001; 83735; 84550; 85025; 85651; 86140; 87088; 96375; 99284-25; A9270; J0696; J1885; J7030; Q9967

== ENCOUNTER 2024-04-30 13:01 | Emergency (ER) | payer OTHER ==
[~2024-04-30] VITALS: Ht 182.9 cm; Wt 128.0 kg
[~2024-04-30 13:01] MED LIST changes: +CEFDINIR300 MG PO; +COLCHICINE0.6 M1 PO; +ICOSAPENT ETHYL1 GM PO; +TRAMADOL HCL50 MG PO
--- OUTSIDE RECORDS SUMMARY | 2024-04-30 13:08 | XMS ---
PreManage Notification: EDDI LOGAN Security Supervisor Pastry Events No recent Security Events currently on file CRITERIA MET - [facility] - 2 Visits in 30 Days CARE PROVIDERS There are no care providers on record at this time. [facility] has no Care Guidelines for this patient. Chanda VISIT COUNT (12 MO.) [address] [facility] [place] [facility] TOTAL 2 NOTE: Visits indicate total known visits. ED/C VISIT TRACKING (12 MO.) 04/30/2024 13:01 [facility] [place] TYPE: Emergency COMPLAINT: - WEAKNESS 04/29/2024 18:01 [facility]AL[facility] Sun [place] TYPE: Emergency COMPLAINT: - LOW BACK PAIN INPATIENT VISIT TRACKING (12 MO.) No inpatient visits to display in this time frame [id number]
[2024-04-30 14:30] LABS: BASOPHILS 0.3 % (0-2); EOSINOPHILS 0.5 % (0-6); HEMATOCRIT 38.5 % (35.0-50.0); HEMOGLOBIN 13.4 g/dL (12.0-18.0); LYMPHOCYTES 3.9 % (24-44); MCH 32.4 (27-36); MCHC 34.7 g/dl (30-36); MCV 93.2 fl (81-99); NEUTROPHILS 90.3 % (39-80); PLATELET COUNT 109 K/uL (140-440); RBC 4.12 M/ul (4.3-5.7)
[2024-04-30 14:34] LABS: ALBUMIN 2.9 g/dL (3.4-5.0); ALBUMIN/GLOBULIN RATIO 0.6 (1.1-2.4); ANION GAP 20.6 (7-21); BILIRUBIN, TOTAL 1.1 ng/dL (0.2-1.0); BUN/CREATININE RATIO 20.12 (6.0-28.6); CALCIUM 8.7 mg/dL (8.5-10.1); CREATININE, SERUM 1.54 mg/dL (0.70-1.30); POTASSIUM 4.6 mmol/L (3.5-5.1); PROTEIN, TOTAL 7.7 g/dL (6.4-8.2)
[2024-04-30 14:37] LABS: LACTIC ACID, BLOOD 1.7 mmol/L (0.4-2.0)
[2024-04-30] MEDS ORDERED: OXYCODONE HCL 5 MG TAB PO ONE (15:00)
[2024-04-30] MEDS ORDERED: ACETAMINOPHEN 500 MG TAB PO ONE (15:00)
[2024-04-30] MEDS ORDERED: SODIUM CHLORIDE 0.9% 1,000 ML IV PRN (15:15)
[2024-04-30] MEDS ORDERED: DAPTOmycin 500 MG/10 ML VIAL IV ONE (20:45)
[2024-04-30] MEDS ORDERED: SODIUM CHLORIDE 0.9% 1,000 ML IV SCH (21:30)
[2024-04-30] MEDS ORDERED: HYDROmorphone HCL 1 MG/ML SYR IV PRN (22:00)
[2024-05-01 02:00] VITALS: BP 134/71
== END 2024-05-01 02:36 | disposition short-term general hospital (02) ==
LOC: ED 13:01
PROVIDERS: Emergency Medicine
DX: M46.46 Discitis, unspecified, lumbar region (principal); N39.0 Urinary tract infection, site not specified; E11.9 Type 2 diabetes mellitus without complications; I10 Essential (primary) hypertension; M10.9 Gout, unspecified; Z79.899 Other long term (current) drug therapy; Z79.01 Long term (current) use of anticoagulants; Z79.4 Long term (current) use of insulin; Z79.84 Long term (current) use of oral hypoglycemic drugs
CPT/HCPCS: 36415; 72156; 72157; 72158; 80053; 83605; 85025; 87040; 99285-25; A9270; A9577; J0878; J1171; J7030

== ENCOUNTER 2024-06-27 15:04 | Inpatient (IN) | payer OTHER ==
[~2024-06-27] VITALS: Ht 177.8 cm; Wt 116.5 kg
[2024-06-27] VITALS (8 sets, daily range): BP systolic 107–117; BP diastolic 54–57
--- OUTSIDE RECORDS SUMMARY | ~2024-06-27 | XMS | Continuity of Care Document ---
Demographics + + + | Address | [address] | | | [place] [address] | + + + | Preferred Language | Unknown | + + + | Marital Status | Unknown | + + + | Christian Affiliation | Unknown | + + + | Race | White | + + + | Ethnic Group | Not or | + + + Author + + + | Author | [facility] | + + + | Organization | [facility] | + + + | Address | [address] | | | [place] [address] | + + + | Phone | | + + + Care Team Providers + + + + | Care Gambling Cashier Name | Role | Phone | + + + + Unavailable | Unavailable | + + + + Allergies No information. Encounters No information. Functional Status No information. Immunizations No information. Medications No information. Problems + + + + | date | description | facility | + + + + | 2024-05-23 11:48:12 | Depression, unspecified | [facility] | + + + + | 2024-05-23 11:48:12 | Discitis, unspecified, | [facility] | | | lumbar region | | + + + + | 2024-05-23 11:48:12 | Infection and inflammatory | [facility] | | | reaction due to internal | | | | left knee prosthesis, | | | | initial encounter | | + + + + | 2024-06-04 15:53:58 | Presence of right | [facility] | | | artificial knee joint | | + + + + | 2024-06-04 15:53:58 | Presence of left | [facility] | | | artificial knee joint | | + + + + | 2024-06-07 22:43:11 | Presence of right | [facility] | | | artificial knee joint | | + + + + | 2024-06-07 22:43:11 | Presence of left | [facility] | | | artificial knee joint | | + + + + | 2024-06-26 08:42:21 | Presence of right | [facility] | | | artificial knee joint | | + + + + | 2024-06-26 08:42:21 | Presence of left | [facility] | | | artificial knee joint | | + + + + | 2024-06-26 09:43:44 | Presence of right | [facility] | | | artificial knee joint | | + + + + | 2024-06-26 09:43:44 | Presence of left | [facility] | | | artificial knee joint | | + + + + Procedures No information. Results/Labs No information. Social History +--------+ + + | date | description | facility | +--------+ + + Vital Signs No information."
--- OUTSIDE RECORDS SUMMARY | ~2024-06-27 | XMS | Continuity of Care Document ---
Demographics + + + | Address | [address] | | | [place] [address] | + + + | Preferred Language | Unknown | + + + | Marital Status | Unknown | + + + | Mu-Ism Affiliation | Unknown | + + + | Race | White | + + + | Ethnic Group | Not or | + + + Author + + + | Author | [facility] | + + + | Organization | [facility] | + + + | Address | [address] | | | [place] [address] | + + + | Phone | | + + + Care Team Providers + + + + | Care Production Support Analyst Name | Role | Phone | + [...]
[~2024-06-27 15:04] MED LIST changes: +SEVOFLURANE 250 ML BTL INH ONE
[2024-06-27] MEDS ORDERED: AMOXICILLIN500 MG PO (15:23)
[2024-06-27] MEDS ORDERED: JARDIANCE10 MG PO (15:24)
[2024-06-27] MEDS ORDERED: CEFAZOLIN SODIUM 2 GM/20 ML SYR IV ONE (15:30)
[2024-06-27 15:50] LABS: HEMATOCRIT 34.5 % (35.0-50.0)
[2024-06-27 15:53] LABS: BASOPHILS 0.3 % (0-2); EOSINOPHILS 1.5 % (0-6); HEMOGLOBIN 11.6 g/dL (12.0-18.0); LYMPHOCYTES 13.6 % (24-44); MCH 28.4 (27-36); MCHC 33.6 g/dl (30-36); MCV 84.5 fl (81-99); MONOCYTES 17.1 % (0-12); NEUTROPHILS 67.5 % (39-80); PLATELET COUNT 192 K/uL (140-440); RBC 4.08 M/ul (4.3-5.7)
[2024-06-27 16:06] LABS: ALBUMIN 3.2 g/dL (3.4-5.0); ALBUMIN/GLOBULIN RATIO 0.84 (1.1-2.4); ANION GAP 19.2 (7-21); BILIRUBIN, TOTAL 0.4 ng/dL (0.2-1.0); BUN/CREATININE RATIO 29.53 (6.0-28.6); CALCIUM 9.4 mg/dL (8.5-10.1); CREATININE, SERUM 1.93 mg/dL (0.70-1.30); POTASSIUM 4.2 mmol/L (3.5-5.1)
[2024-06-27] MEDS ORDERED: ROCURONIUM BROMIDE 50 MG/5 ML SYR ONE (16:50)
[2024-06-27] MEDS ORDERED: fentaNYL citrate 100 MCG/2 ML VIAL ONE (16:50)
[2024-06-27] MEDS ORDERED: SUCCINYLCHOLINE IN 0.9% NACL 200 MG/10 ML SYRINGE ONE (16:50)
[2024-06-27] MEDS ORDERED: ondansetron HCL 4 MG/2 ML VIAL ONE (16:50)
[2024-06-27] MEDS ORDERED: propofoL 200 MG/20 ML VIAL ONE (16:50)
[2024-06-27] MEDS ORDERED: LIDOCAINE HCL 2% 5 ML SDV ONE (16:50)
[2024-06-27] MEDS ORDERED: ACETAMINOPHEN 1,000 MG/100 ML VIAL ONE (16:50)
[2024-06-27] MEDS ORDERED: ePHEDrine sulfate 50 MG/ML AMP ONE (17:05)
[2024-06-27] MEDS ORDERED: PHENYLEPHRINE HCL 10 MG/ML VIAL ONE (17:15)
[2024-06-27] MEDS ORDERED: SUGAMMADEX SODIUM 200 MG/2 ML ML ONE (17:22)
[2024-06-27] MEDS ORDERED: ondansetron HCL 4 MG TAB PO PRN (17:45)
[2024-06-27] MEDS ORDERED: IBLOOD GLUCOSE TEST STRIP 1 EA TEST VI PRN (17:45)
[2024-06-27] MEDS ORDERED: HYDROCODONE/ACETA 7.5/325 TAB PO PRN (17:45)
[2024-06-27] MEDS ORDERED: ondansetron HCL 4 MG/2 ML VIAL IV PRN (17:45)
[2024-06-27] MEDS ORDERED: fentaNYL citrate 50 MCG/ML SDV IV PRN (17:45)
[2024-06-27] MEDS ORDERED: NALOXONE HCL 0.4 MG SYR IV PRN (17:45)
[2024-06-27] MEDS ORDERED: KETOROLAC TROMETHAMINE 30 MG/ML VIAL IV PRN (17:45)
--- NOTE | 2024-06-27 17:59 | NUR ---
06/27/24 Monet Castañeda 1740 PT ARRIVED TO PACU AWAKE AND TALKING TO RN. PT DENEIS NAUSEA AND PAIN. VSS. PLAN OF CARE DISCUSSED. ICE TO RIGHT KNEE PER MD ORDER. 1755 PT RESTING IN BED AND DENEIS CONCERNS. TALKING TO RN.
--- NOTE | 2024-06-27 18:05 | NUR ---
PT ARRIVES TO FLOOR VIA STRETCHER. REPORT RECEIVED FROM DOMINGO WARREN RN. VS TAKEN. WEIGHT TAKEN. SCDs IN PLACE, HEEL PROTECTORS IN PLACE, CPOX IN PLACE. PT AGREEABLE TO TRYING JELLO AND CRACKERS WITH WATER AT THIS POINT. CURRENTLY EATING. NO REQUESTS, CALL LIGHT IN REACH.
--- NOTE | 2024-06-27 18:47 | NUR ---
ASSESSMENT COMPLETE. PT RESTING IN BED, BEGINS TO COMPLAIN OF BILAT KNEE PAIN "STABBING" AND RATED 6/10. PRN PAIN MEDICATION PROVIDED, SEE JUL. PT WITH HEEL PROTECTORS IN PLACE, SCDs IN PLACE, CPOX IN PLACE. ICE PACK TO R KNEE IN PLACE. BOTH DRESSING C/D/I. PTs BILAT FEET ARE COLD TO THE TOUCH AND HE REPORTS HE HAS CHRONIC TINGLING OF HIS BLE. BILAT PEDAL PULSES ARE 2+ WITH CAPILLARY REFILL LESS THAN 3 SECONDS. WARM BLANKET WRAPPED AROUND BOTH FEET FOR COMFORT. PT EATS JELLO AND CRACKERS AND TOLERATES WELL, NO NAUSEA OR DISCOMFORT. PT REPORTS "I COULD EAT A BEER CAN" TO REFER TO HOW TOUGH HIS STOMACH IS. DISCUSSED ANTIBIOTICS WITH PT AND PHYSICAL THERAPY ORDERED FOR TOMORROW, PT AGREEABLE TO PLAN AND VERBALIZES UNDERSTANDING. IV IN R FOREARM FLUSHES WNL. PT HAS NO BELONGINGS AT THIS TIME, PTs HAS TAKEN EVERYTHING HOME WITH HER. PTs ARRIVES AND IS IN RECLINER AT BEDSIDE AT THIS TIME. CALL LIGHT IN REACH, BED IN LOWEST POSITION, PT EDUCATED TO NOT GET UP AND CALL FOR ANY NEEDS, PT EXPRESSES UNDERSTANDING.
[2024-06-27] MEDS ORDERED: DEXTROSE 5% 1,000 ML IV PRN (19:00)
[2024-06-27] MEDS ORDERED: IBLOOD GLUCOSE TEST STRIP 1 EA TEST XX PRN (19:00)
[2024-06-27] MEDS ORDERED: DEXTROSE 50% 50 ML SYR IV PRN ×2 (19:00)
[2024-06-27] MEDS ORDERED: GLUCAGON,HUMAN RECOMBINANT 1 MG/ML VIAL SUB-Q PRN (19:00)
--- NOTE | 2024-06-27 19:25 | NUR ---
GOT REPORT FROM DAY SHIFT NURSE. PATIENT IS AWAKE, A&O WITH AT BEDSIDE. PATIENT HAS ICE ON THE RIGHT KNEE, HEEL PROTECTORS ON, SCDS ON. PATIENT HAS CPOX ON AND JUST HAD HIS SECOND HOURLY VITALS DONE.
--- NOTE | 2024-06-27 20:42 | NUR ---
Patient resting in bed, he is getting some sharp pains in both legs at times. Pedal pulse 2+ strong, warm blanket placed on feet as they are cold to the touch, patient states they are always cold. Patient denies any nausea. Pain currently at 7/10. Will get norco again at 10pm. Patient has ice to both knees and that has really helped the pain. Vitals are wnl. Patient denies anything else to eat at this time. Pt has not voided yet. Urinal at bedside. Patient advised this nurse he does have a sore on his buttocks but he does not want to rotate for this nurse to look at it yet. Patient has call light within reach, bed in low position.
[2024-06-27] MEDS ORDERED: IBLOOD GLUCOSE TEST STRIP 1 EA TEST VI SCH (21:00)
[2024-06-27] MEDS ORDERED: SENNOSIDES 1 TAB PO SCH (21:00)
[2024-06-27] MEDS ORDERED: NYSTATIN OINTMENT 15GM TUBE TOP SCH (21:00)
[2024-06-27] MEDS ORDERED: MAGNESIUM HYDROXIDE 30 ML UDC PO SCH (21:00)
[2024-06-27] MEDS ORDERED: INSULIN LISPRO 100 UNIT/ML ML SUB-Q SCH (21:00)
--- NOTE | 2024-06-27 21:02 | NUR ---
Patient advised we need to push fluids to be able to void. Fresh water given. Diet ra at bedside. He did agree to a sandTransifexich box before his next [place], and before bed. is helping him but will be going home soon. Patient on RA. RT came and checked on him earlier.
--- NOTE | 2024-06-27 21:52 | NUR ---
Patient given 1 unit of insulin, evening medications. Nystatin applied to testicles. Vitals taken. Patient ate his TriNovus box. has went home for the evening. SCDs going, heal protectors on, Ice removed for a little bit.
--- NOTE | 2024-06-27 21:53 | EKG ---
[facility] [address] [facility] [place], [place] [address] Signed Normal sinus rhythm Normal ECG When compared with ECG of 04-NOV-2019 14:36, No significant change was found Confirmed by Nehemias Torres DO ([id number]) on 06/27/2024 9:53:24 PM Electronically Signed By: NEHEMIAS TORRES DO 06/27/242152 PATIENT NAME: DOREENEDDI FRIDA Electrocardiogram DATE OF : 61 PHYSICIAN: NEHEMIAS TORRES DO REPORT #: [id number] REPORT IS CONFIDENTIAL AND NOT TO BE RELEASED WITHOUT AUTHORIZATION
[2024-06-27] MEDS ORDERED: CEFAZOLIN SODIUM 3 GM/30 ML SYR IV SCH (22:00)
--- NOTE | 2024-06-27 22:25 | NUR ---
PATIENT GIVEN NORCO AND PICTURES TAKEN OF 2 SORES ON PATIENTS BUTTOCKS. PATIENT STATES HE IS NOT ABLE TO DO ANY ADHESIVES THEY RECENTLY DID THIS AND IT MADE THINGS WORSE. HE LEAVES THEM OPEN TO AIR AND THEY PLACE BARIER CREAM. THE TWO SORES HAVE BEEN THERE FOR ABOUT 1.5 MONTHS.
--- NOTE | 2024-06-27 22:39 | NUR ---
Pictures have been placed in patients chart. called med surg and we will place a wound consult for patient to get more ideas for treatment since patient is not able to do any adhesive. Last set of post op vitals done. Pt ready for bed.
--- NOTE | 2024-06-27 22:50 | NUR ---
IN ROOM WITH PRIMARY RN ERIKA TO OBTAIN PHOTOS OF pt BUTTOCKS, PER pt-HE HAS BEEN DEALING WITH HIS WOUND WHILE HE WAS IN [facility], ID STATING, "THEY HAVE BEEN PUTTING BARRIER CREAM WITH ZINC ON IT AND CHANGING THE DRESSING EVERY SUNDAY. BUT THEN I FOUND OUT I WAS ALLERGIC TO ADHESIVES, SO THEY LEFT IT OPEN". PHOTOS OBTAINED AND PLACED IN CHART, CONSENT ALSO OBTAINED. DR TORRES CONSULTING ON pt, TELEPHONE ORDER READ BACK-OKAY TO PLACE WOUND CONSULT FOR pt. ORDER PLACED.
--- NOTE | 2024-06-27 23:02 | NUR ---
BESIDES THE TWO ABRASIONS ON HIS BUTTOCKS PATIENT ALSO HAS SOME REDDNESS AND DISCOLORATION AROUND HIS BUTTOCKS.BLANCHABLE. SEE CHART FOR PHOTOS. PT STATES HE HAS HAD THIS ALSO FOR ABOUT 1.5 MONTHS SINCE GOING INTO THE HOSPITAL. THEY APPLIED BARRIER CREAM WITH ZINC AND HAD HIM ON A BED THAT WOULD ADJUST POSITIONS.
[2024-06-28] VITALS (9 sets, daily range): BP systolic 90–104; BP diastolic 50–55
--- NOTE | 2024-06-28 00:02 | NUR ---
Patient resting but opens eyes when walking in. Ice placed back on both knees.
--- NOTE | 2024-06-28 00:30 | NUR ---
RECEIVED BEDSIDE REPORT ON pt FROM MEMO JAMES, THIS RN TO TAKE OVER pt CARE AT THIS TIME. pt AWAKE AND RESTING IN BED, ON BACK. DENA WRAP DRESSINGS TO BILATERAL KNEES C/D/I-ICE PACKS IN PLACE. SCD'S AND HEEL PROTECTORS ALSO IN PLACE. IV SITE WNL, SALINE LOCKED. pt DENEIS ADDITIONAL NEEDS OR CONCERNS, CALL LIGHT IN REACH.
--- NOTE | 2024-06-28 01:27 | NUR ---
JIG AND FIXTURE BUILDER OBTAINED VITALS AND I&O. PT STATES NO NEEDS AT THIS TIME. CALL LIGHT WITHIN REACH.
--- NOTE | 2024-06-28 02:03 | NUR ---
rounded on pt, pt awoke while entering room. mathew wraps remain c/d/i to bilateral knees. scd's and heel protectors both in place. no needs or concerns verbalzied, call light in reach.
--- NOTE | 2024-06-28 02:22 | NUR ---
OPTOELECTRONICS ENGINEER RECHECKED PT B/P. RN NOTIFED OF B/P OF . PT STATES NO NEEDS AT THIS TIME. CALL LIGHT WITHIN REACH.
--- NOTE | 2024-06-28 03:19 | NUR ---
rounded on pt, pt awake and resting in bed. remains on ra, rr even and unlabored. focused assessment complete. dressing to bilateral knees remains c/d/i, cms intact. strong pedal pulses bilaterally, equal in strength. skin warmer in temp compared to earlier in shift, blankets remain in place. new ice packs provided. pt educated on prevention of skin breakdown and educated to change postions in bed, pt reports able to do so and agrees to do so, declines pillow under buttocks/hip when offered. iv site wnl, saline locked. urinal emptied and fresh water provided. pt denies additional needs or concerns when asked/offered. call light in reach.
--- NOTE | 2024-06-28 05:50 | NUR ---
IN ROOM TO ADMINISTER SCHEDULED IV ABX AND PRN PAIN MEDICATION-SEE EMAR. PRN TORADOL GIVEN AND pt INSTRUCTED TO USE CALL LIGHT IF PAIN IS NOT IMPROVED, pt VERBALZIED UNDERSTANDING, POC TO GIVE PRN NORCO PRIOR TO WORKING WITH PHYSICAL THERAPY IF NOT NEEDED SOONER. BILAT DENA WRAP DRESSINGS REMAIN C/D/I, ICE PACKS PRN. SCD'S AND HEEL PROTECTORS IN PLACE. IV SITE WNL, SALINE LOCKED FOLLOWING MED ADMINISTRATION. ALLEVYN OFFERED TO BUTTOCKS R/T FRICTION/ULCER-pt DECLINED AT THIS TIME D/T ADHESIVE EDGE. PILLOW ALSO OFFERED UNDER HIP, pt AGAIN DECLINED, REPORTS BEING ABLE TO CHANGE POSITIONS IN BED TO OFF LOAD PRESSURE TO BUTTOCKS. NO ADDITIONAL NEEDS OR CONCERNS, CALL LIGHT IN REACH. WAFFLE MATTRESS IN ROOM, PLAN TO PUT IN PLACE WHILE pt WORKS WITH PHYSICAL THERAPY. pt AGREEABLE.
--- NOTE | 2024-06-28 08:24 | NUR ---
Board has been updated and call light has been placed within reach
--- NOTE | 2024-06-28 08:40 | NUR ---
RN IN ROOM TO ADMINISTER SCHEDULED MEDICATIONS. PT REPORTS 6/10 PAIN BUT REQUESTS PAIN MEDICATION PRIOR TO PT AND NOT RIGHT NOW. BILATERAL KNEE DRESSINGS C/D/I. SCDS IN PLACE. OTHERWISE PT DENIES COMPLAINTS. BREAKFAST PROVIDED.
--- NOTE | 2024-06-28 09:20 | OR ---
[facility] [address], [place] [address] Signed DATE OF OPERATION: 06/27/2024 SURGEON: David Mallory MD PREOPERATIVE DIAGNOSIS: Wound dehiscence, bilateral total knee replacement, status post fall. POSTOPERATIVE DIAGNOSIS: Wound dehiscence, bilateral total knee replacement, status post fall. PROCEDURES PERFORMED: 1. Irrigation and debridement of skin, subcutaneous tissue, bilateral knees. 2. Primary closure, bilateral incisions. COMPUTER PUBLISHER: Cammy Amaro PA-C. Cammy was present and critical for all portions of procedure. ANESTHESIA: General. BLOOD LOSS: Minimal. TOURNIQUET TIME: Zero. BRIEF HISTORY: Bravo is a 58-year-old gentleman, who had recent revision bilateral total knees. He subsequently was in rehab for a month in [place] and came home today. Upon trying to enter his house, he fell on the steps, landing on the front of both knees opening the incisions. Risks, benefits, and alternatives were discussed with him. He elected to proceed. PROCEDURE IN DETAIL: Once consent was obtained, he was taken to the operating room. After adequate anesthesia, he was placed on operating room table. Both lower extremities were prepped and draped in standard sterile fashion from the groin to the toes. The right incision was opened about 6 inches long and about an inch wide. The left incision was only about the inferior one into the incision. The capsule and retinaculum were intact on both Electronically Signed By: DAVID MALLORY MD 06/28/24 0920 PATIENT NAME: EDDI LOGAN OPERATIVE REPORT DATE OF : 61 REPORT #: [id number] PHYSICIAN: DAVID MALLORY MD PCP: MURALI YOUNG PA-C REPORT IS CONFIDENTIAL AND NOT TO BE RELEASED WITHOUT AUTHORIZATION [address] [address] Signed knees. There was no significant bleeding from either wound. The right knee wound was quite scarred down on the medial aspect and the skin flap was developed for mobilization. Again, the medial and lateral capsule was completely closed. Both wounds were copiously irrigated first with Surgiflo followed by normal saline. Both wounds were then closed using 0 Monocryl followed by 2-0 nylon. Both wounds were then dressed with Acticoat-7 dressing, ABDs, and Christian wrap. He tolerated the procedure well. All sponge, needle, and instrument counts were correct. Total incision length was about 7 inches of debridement. David Mallory MD BA/CITLALIL /[id number] Copies: ~ Electronically Signed By: DAVID MALLORY MD 06/28/24 0920 PATIENT NAME: EDDI LOGAN OPERATIVE REPORT DATE OF : 61 REPORT #: [id number] PHYSICIAN: DAVID MALLORY MD PCP: MURALI YOUNG PA-C REPORT IS CONFIDENTIAL AND NOT TO BE RELEASED WITHOUT AUTHORIZATION
--- NOTE | 2024-06-28 09:45 | NUR ---
PT PRE-MEDICATED FOR PHYSICAL THERAPY - RATES PAIN 11/04. MD IN ROOM ROUNDING. ALL QUESTIONS ANSWERED. PT STATES PREVIOUS HOSPITAL RECOMENDED ZINC OXIDE CREAM ON COCCYX BREAKDOWN AND OPEN TO AIR. CREAM PLACED AT BEDSIDE TO APPLY ONCE UP OUT OF BED. BP NOTED TO BE LOW BUT WNL. PT EDUCATED ON ORTHOSTATIC HYPOTENSION. PHYSICAL THERAPY IN ROOM TO VIC.
--- NOTE | 2024-06-28 11:24 | NUR ---
PT RESTING IN BED AND STATES HIS PAIN IS IMPROVED POST PRN NORCO. SCD'S IN PLACE. DENIES NEEDS AT THIS TIME. REPORTS HE FEELS MORE COMFORTABLE WITH AMBULATION AFTER WORKING WITH PT.
--- NOTE | 2024-06-28 12:28 | NUR ---
PT RESTING IN BED, LUNCH TRAY DELIVERED. INSULIN GIVEN PER SLIDING SCALE - SEE MAR. PRIMARY RN NOTIFIED. PT DENIES ANY OTHER NEEDS AT THIS TIME, TRAY SETUP. CALL LIGHT WITHIN REACH AT THIS TIME. DID GET PATIENT SOME FRESH ICE WATER.
--- NOTE | 2024-06-28 13:30 | NUR ---
REPORT REC'D FROM MEMO ARGUELLO. PT RESTING IN BED AT THIS TIME. CALL ALMODOVAR IN REACH, BED LOW POSITION AND LOCKED.
[2024-06-28] MEDS ORDERED: METHOCARBAMOL500 MG PO (14:03)
[2024-06-28] MEDS ORDERED: NEURONTIN300 MG PO (14:04)
[2024-06-28] MEDS ORDERED: COLCHICINE0.6 M1 PO (14:07)
[2024-06-28] MEDS ORDERED: MIDODRINE HCL2.5 MG PO (14:08)
[2024-06-28] MEDS ORDERED: PREDNISONE10 MG PO (14:10)
[2024-06-28] MEDS ORDERED: BALSAM PERU-CAS60 GM TOP (14:12)
[2024-06-28] MEDS ORDERED: ADMELOG SO100 UNIT/1 SUB-Q (14:13)
--- NOTE | 2024-06-28 14:42 | NUR ---
MED REC COMPLETE
--- NOTE | 2024-06-28 15:45 | NUR ---
PT RETURNED TO BED, SCD'S PLACED. BED LOW POSITION, LOCKED. SIDERAILS UP X2, CALL ALMODOVAR IN REACH. PT NO C/O AT THIS TIME.
--- NOTE | 2024-06-28 18:29 | NUR ---
PT RESTING IN BED, TOLERATED 100% OF EVENING MEAL. NO C/O VOICED AT THIS TIME
[2024-06-28] MEDS ORDERED: MELATONIN 3 MG TAB PO SCH (21:00)
[2024-06-28] MEDS ORDERED: CITALOPRAM HYDROBROMIDE 20 MG TAB PO SCH (21:00)
[2024-06-28] MEDS ORDERED: GABAPENTIN 300 MG CAP PO SCH (21:00)
[2024-06-28] MEDS ORDERED: AMOXICILLIN 500 MG CAP PO SCH (21:14)
[2024-06-28] MEDS ORDERED: AMOXICILLIN 500 MG HOME.PACK PO SCH (21:15)
[2024-06-29] VITALS (7 sets, daily range): BP systolic 107–111; BP diastolic 52–66
--- NOTE | 2024-06-29 00:16 | NUR ---
PT PLEASANT AND COOPERATIVE WITH CARE T/O SHIFT. PT OOB TO CHAIR X1 WITH STANDING WALKER. COVERED X2 WITH INSULIN FOR ELEVATED GLUCOSE LEVEL. CPAP CLEARED BY RT FOR USE. PT MEDICATED X1 FOR PAIN. SCD'S IN USE. SURGICAL SITES REMAIN CD&I, CMS INTACT.
--- NOTE | 2024-06-29 01:51 | NUR ---
REPORT RECEIVED FROM FLOR HAMPTON AND CARE ASSUMED. PT IS RESTING IN BED WITH EYES CLOSED, RESP EVEN AND UNLABORED, CALL LIGHT IN REACH.
--- NOTE | 2024-06-29 03:06 | NUR ---
PT CONT TO REST WITH EYES CLOSED, WEARING CPAP, RESP EVEN AND UNLABORED.
--- NOTE | 2024-06-29 04:30 | NUR ---
PT UP TO BATHROOM WITH AUTO RENTAL CLERK FOR LARGE BOWEL MOVEMENT, BACK TO BED, DENIES NEEDS.
--- NOTE | 2024-06-29 05:30 | NUR ---
LAB IN TO DRAW, PT DENIES NEEDS.
[2024-06-29 05:46] LABS: BASOPHILS 0.5 % (0-2); EOSINOPHILS 4.7 % (0-6); HEMATOCRIT 37.9 % (35.0-50.0); HEMOGLOBIN 12.1 g/dL (12.0-18.0); LYMPHOCYTES 29.8 % (24-44); MCH 27.7 (27-36); MCV 86.5 fl (81-99); MONOCYTES 11.7 % (0-12); NEUTROPHILS 53.3 % (39-80); PLATELET COUNT 227 K/uL (140-440); RBC 4.38 M/ul (4.3-5.7); RDW 18.7 (10.5-15.0)
[2024-06-29 05:56] LABS: ANION GAP 15.1 (7-21); BUN/CREATININE RATIO 22.13 (6.0-28.6); CALCIUM 9.7 mg/dL (8.5-10.1); CREATININE, SERUM 1.22 mg/dL (0.70-1.30); MAGNESIUM 2.5 mg/dL (1.8-2.4); POTASSIUM 5.1 mmol/L (3.5-5.1)
--- NOTE | 2024-06-29 06:33 | NUR ---
PT CALLS FOR ASSISTANCE WITH GETTING HIS BLANKETS FIXED, DENIES PAIN OR OTHER NEEDS, WANTING TO TRY TO GO BACK TO SLEEP. CALL LIGHT IN REACH.
--- NOTE | 2024-06-29 07:26 | NUR ---
VERBAL REPORT RECEIVED FROM MEMO LOUIS. PT RESTS IN BED WITH EYES CLOSED, RESP EVEN AND UNLABORED.
[2024-06-29] MEDS ORDERED: predniSONE 20 MG TAB PO SCH (09:00)
--- NOTE | 2024-06-29 10:00 | NUR ---
PATIENT SITTING UP IN CHAIR AT THIS TIME. VITALS AND I&O'S DONE AND CHARTED. LINENS CHANGED. CALL LIGHT IN REACH. NO FURTHER NEEDS AT THIS TIME.
--- NOTE | 2024-06-29 10:09 | NUR ---
SPOKE WITH PT REGARDING INFECTIOUS DISEASE APPT. STATES IT IS A TELE VISIT AND WILL CALL AND CONFIRM APPT TOMORROW MORNING HE DOES NOT REMEMBER EXACT APPT.
--- NOTE | 2024-06-29 11:34 | NUR ---
PT BACK TO BED FROM RECLINER VIA 1 PA AND FWW. WOUND CARE PROVIDED, PT TOLERATED WELL. SCDS IN PLACE BILAT. PT SITS UP IN BED, AWAKE AND ALERT, ON CELL PHONE, CALL LIGHT AND BELONGINGS IN REACH. NORCO PROVIDED FOR PAIN, SEE EMAR. NO FURTHER REQUESTS AT THIS TIME.
--- NOTE | 2024-06-29 11:35 | NUR ---
WOUND CARE CONSULTED FOR SKIN BREAKDOWN ON SACRUM. HISTORY OF PRESENT ILLNESS: PT IS A 58 YEAR OLD MALE ADMITTED ON 06/27/24 AFTER FALLING AND RUPTURING HIS BILATERAL KNEE INCISIONS. PT HAD BILATERAL KNEE SURGERY IN [place] ON 05/18 AND WAS RECENTLY DISCHARGED FROM REHAB. S/P BILATERAL KNEE WASHOUT BY DR. DOWNS ON 06/27/24. SKIN BREAKDOWN OVER SACRUM NOTED UPON ADMISSION. PAST MEDICAL HISTORY: HTN, DM II, JOSSELINE, CAD, GOUT, HLD, HISTORY OBTAINED FROM CHART AND INTERVIEW WITH PT. ALLERGIES: NKDA, REPORTS SENSITIVITY TO ADHESIVES. CELE SCORE: 17 STATIC WAFFLE OVERLAY ON BED SURFACE. UPON ASSESSMENT NOTED PRESSURE INJURIES X2 ON LEFT SACRUM AND RIGHT SACRUM. RASH NOTED IN THE PERIWOUND OVER BUTTOCKS AND SACRUM. WOUND ASSESSMENT: RIGHT SACRUM, ETIOLOGY PRESSURE INJURY/FRICTION AND SHEAR. CLASSIFICATION: STAGE 2, PRESSURE INJURY SIZE: 0.5 CM X 2 CM X 0.1 CM WOUND BASE: 100% PINK MOIST NON-GRANULAR TISSUE. EDGES: OPEN EXUDATE: None MAHESH WOUND SKIN: INTACT PINK DRY WARM. RED RASH IN PERIWOUND. PERIWOUND BLANCHABLE. WOUND ASSESSMENT: LEFT SACRUM, ETIOLOGY PRESSURE INJURY/FRICTION AND SHEAR. CLASSIFICATION: STAGE 2, PRESSURE INJURY SIZE: 0.2 CM X 0.2 CM X 0.1 CM WOUND BASE: 100% PINK MOIST NON-GRANULAR TISSUE. EDGES: OPEN EXUDATE: None MAHESH WOUND SKIN: INTACT PINK DRY WARM. RED RASH IN PERIWOUND. PERIWOUND BLANCHABLE. RASH ASSESSMENT: RASH NOTED OVER SACRUM AND BUTTOCKS. LESIONS ARE FLAT, RED, CLOSED AND SCATTERED WITH SATILITE LESIONS. PICTURES IN CHART FROM 06/27/24, SEE PAPER CHART. LEFT AND RIGHT SACRAL WOUNDS CLEANSED WITH NS AND PATTED DRY. TRIAD CREAM APPLIED OVER WOUND BASES. NYSTATIN OINTMENT ORDER ALREADY IN PLACE FOR SACRAL/BUTTOCK RASH, OINTMENT APPLIED. PT TOLERATED WELL. TREATMENT RECOMMENDATIONS RIGHT & LEFT SACRAL WOUNDS CLEANSE WOUNDS WITH NS AND PAT DRY. APPLY TRIAD CREAM OVER WOUND BASES BID. CONTINUE NYSTATIN OINTMENT OVER SACRAL/BUTTOCK RASH ORDERED IN EMAR. USE WAFFLE STATIC OVERLAY ON BED SURFACE. GOALS: HEAL. OFF LOAD SACRUM, REDUCE FRICTION AND SHEAR, KEEP SKIN CLEAN AND DRY. WOUND CARE SIGNING OFF. PLEASE RE-CONSULT FOR ANY NEW CONCERNS.
--- NOTE | 2024-06-29 13:11 | NUR ---
PT REPORTS PAIN TOLERABLE AT THIS TIME. SITS UP IN BED, WATCHES TV, NO REQUESTS AT THIS TIME.
--- NOTE | 2024-06-29 13:38 | NUR ---
PATIENT SITTING UP IN BED WATCHING TV. VISITOR IN ROOM. VITALS AND I&O'S DONE AND CHARTED. CALL LIGHT IN REACH. FRESH WATER GIVEN. NO FURTHER NEEDS AT THIS TIME.
--- NOTE | 2024-06-29 15:44 | NUR ---
PT AMBULATES IN HALLWAY X1 LAP WITH FWW FOLLOWED BY WHEELCHAIR. PT TOLERATED FAIR.
--- NOTE | 2024-06-29 18:30 | NUR ---
PATIENT SITTING UP IN BED WATCHING TV AT THIS TIME. VITALS AND I&O'S DONE AND CHARTED. CALL LIGHT IN REACH. NO FURTHER NEEDS AT THIS TIME.
--- NOTE | 2024-06-29 20:04 | NUR ---
RECEIVED REPORT FOR DAY RN - JOS. PT RESTING IN BED, EYES CLOSED DID NOT AWAKEN WHEN ENTERED ROOM. BREATHING IS UNLABORED. CALL LIGHT WITHIN REACH, ALL PATIENT CARE NEEDS MET AT THIS TIME. ALLOWED TO REST AT THIS TIME.
--- NOTE | 2024-06-29 21:16 | NUR ---
VS COMPLETED, FRESH ICE WATER. GARBAGES EMPTIED. BS COMPLETED, 189, REPORTED TO PRIMARY RN. PT DENIES PAIN
--- NOTE | 2024-06-29 23:13 | NUR ---
PT RESTING WHEN ENTERED ROOM, DID NOT AWAKEN. RESPIRATIONS ARE UNLABORED, PT IS SNORING. URINAL EMPTIED AT THIS TIME. PT ALLOWED TO SLEEP. CALL LIGHT WITHIN REACH.
[2024-06-30] VITALS (7 sets, daily range): BP systolic 105–129; BP diastolic 60–68
--- NOTE | 2024-06-30 00:12 | NUR ---
PT RESTING WHEN ENTERED ROOM, DID NOT AWAKEN. RESPIRATIONS ARE UNLABORED. CALL LIGHT WITHIN REACH, NO NEEDS AT THIS TIME. WILL CONTINUE TO MONITOR.
--- NOTE | 2024-06-30 01:41 | NUR ---
PT RESTING AT THIS TIME, RESPIRATIONS UNLABORED. DID NOT AWAKEND UPON ENTERING ROOM. CALL LIGHT WITHIN REACH, WILL CONTINUE TO MONITOR.
--- NOTE | 2024-06-30 03:12 | NUR ---
PT RESTING AT THIS TIME, DID NO AWAKEN WHEN ENTERED. RESPIRATIONS UNLABORED. CALL LIGHT WITHIN REACH, NO NEEDS. WILL CONTINUE TO MONITOR.
--- NOTE | 2024-06-30 04:45 | NUR ---
PT SLEEPING IN BED AT THIS TIME, DID NOT AWAKEN. NO NEEDS AT THIS TIME. RESPIRATIONS UNLABORED. CALL LIGHT WITHIN REACH, WILL CONTINUE TO MONITOR.
--- NOTE | 2024-06-30 07:07 | NUR ---
VERBAL REPORT RECEIVED FROM MEMO SCOTT. PT RESTS IN BED WITH EYES CLOSED, RESP EVEN AND UNLABORED.
[2024-06-30] MEDS ORDERED: INSULIN LISPRO 100 UNIT/ML ML SUB-Q SCH (08:00)
--- NOTE | 2024-06-30 08:00 | NUR ---
UR CLINICAL REVIEW: [facility] IN[facility] FOR MUSCULOSKELETAL [facility] INPT 06/27/24 @ 1630 ORDER MATCHES REG CLINICALS FAXED TO [facility] FOR REVIEW DISCHARGE HOME PENDING PT EVALUATION AND RECOVERY 07/01/24
[2024-06-30] MEDS ORDERED: EMPAGLIFLOZIN 10 MG TAB PO SCH (09:00)
--- NOTE | 2024-06-30 09:33 | NUR ---
PT UP WITH OT.
--- NOTE | 2024-06-30 09:49 | NUR ---
PT IN SHOWER WITH IRASEMA FELIPE.
--- NOTE | 2024-06-30 10:16 | NUR ---
PATIENT UP TO SHOWER CHAIR WITH OT. THIS OUTSOLE CASER ASSISTED IN SHOWER. SKIN CARE, MAHESH CARE, SHAMPOO DONE. NEW GOWN PROVIDED. PATIENT BACK TO BED, 1PA FWW. RN IN ROOM. CALL LIGHT IN REACH. NO FURTHER NEEDS AT THIS TIME.
--- NOTE | 2024-06-30 10:29 | NUR ---
WOUND CARE PERFORMED TO LEFT AND RIGHT SACRAL WOUNDS. TRIAD CREAM APPLIED TO WOUND BASES. NYSTATIN OINTMENT APPLIED TO PERIWOUND RASH. PT NOW UP WITH PHYSICAL THERAPY.
--- NOTE | 2024-06-30 10:38 | NUR ---
PATIENT IN BED. MANAGER GRAPHIC CHARTED I&O'S, RN ENTERED VITALS. CALL LIGHT WITHIN REACH. NO FURTHER ASSISTANCE NEEDED AT THIS TIME.
--- NOTE | 2024-06-30 11:00 | NUR ---
Spoke with Preston. Initially he is wanting to leave as soon as possible. He is unable to sit him self up, stand, or walk without assist. I discussed with the pt its up to him, but really it wouldn't hurt him to stay a few days. He really is not safe. Pt states he will think about this. He is working with therapies.
--- NOTE | 2024-06-30 11:25 | NUR ---
PT DENIES ANY PAIN OR DISCOMFORT AT THIS TIME. PT AMBULATES IN HALLWAY WITH STEADY GAIT.
--- NOTE | 2024-06-30 11:26 | NUR ---
Notified by Hedy from OT. Pt now would like to stay in the hospital to work with PT. I texted Dr. Mallory and he arrived a few minutes later and spoke with pt. Per pt he lives with his and son. They both work, but someone will be home all the time. He denies financial issues or need for further DME. He was in rehab in [place], but left early due to the snow. He is concerned as he is having difficulty mobilizing and also he is unable to wipe himself. Pt agreeable to work with therapy and Dr. Mallory in agreement as he is concerned this pt will fall again.
--- NOTE | 2024-06-30 14:51 | NUR ---
PATIENT IN BED AT THIS TIME. BUNDLE WRAPPER CHARTED VITALS AND I&O'S. CALL LIGHT WITHIN REACH, NOTHING ELSE NEEDED AT THIS TIME.
--- NOTE | 2024-06-30 15:10 | NUR ---
PT RECEIVES NORCO FOR BACK PAIN 11/04. PT RESTS IN RECLINER, BLE ELEVATED, SCD'S IN PLACE TO BLE FROM ANKLE TO KNEE. CALL LIGHT AND BELONGINGS IN REACH. NO REQUESTS AT THIS TIME.
--- NOTE | 2024-06-30 17:07 | NUR ---
REVENUE CYCLE SPECIALIST ASSISTED RESIDENT WITH WALKER, TOOK ONE LAP AROUND NURSES STATION AND BACK TO ROOM. CALL LIGHT WITH IN REACH. NOTHING ELSE NEEDED AT THIS TIME.
--- NOTE | 2024-06-30 17:30 | NUR ---
RESIDENT IN BED AT THIS TIME. LABEL DESIGNER CHARTED VITALS. CALL LIGHT WITHIN REACH. NOTHING ELSE NEEDED AT THIS TIME.
--- NOTE | 2024-06-30 19:34 | NUR ---
REPORT RECEIVED FROM DAY SHIFT RN. PT SITTING IN RECLINER ALERT AND ORIENTED. BLANKET PROVIDED. NO FURTHER NEEDS. WHITE BOARD UPDATED. CALL LIGHT IN REACH.
--- NOTE | 2024-06-30 19:45 | NUR ---
PATIENT USED THE URINAL. PATIENT WANTING TO GO TO BED. PRIMARY RN IN THE ROOM. PATIENT IS BACK IN BED. PATIENT DID LIFT HIS LEGS TO THE BED BY HIMSELF. SCDS BACK ON. NO FURTHER REQUEST.
--- NOTE | 2024-06-30 20:36 | NUR ---
PT RESTING IN BED WATCHING TV. [place] THIS EVENING , PRIMARY RN NOTIFIED. PT REQUESTING SOMETHING AT BEDTIME FOR PAIN ALONG WITH HIS SCHEDULED MELATONIN. FRESH ICE WATER PROVIDED. CALL LIGHT WITHIN REACH, DENIES ANY OTHER NEEDS AT THIS TIME.
--- NOTE | 2024-06-30 21:19 | NUR ---
EVENING ASSESSMENT COMPLETE. SCHEDULED MEDS ADMIN PER EMAR. PT REPORTS CHRONIC BACK PAIN 10/04. DENIES PRN FOR PAIN WHEN OFFERED. DENIES KNEE PAIN. BILAT KNEE DRESSINGS CDI. PT REPORTS CHRONIC TINGLING IN BILAT FEET. BRISK CAP REFILL AND STRONG PULSES NOTED. ICE PACKS OFFERED, PT REFUSED. SCD'S IN PLACE. PT DENIES QUESTIONS OR CONCERNS. CALL LIGHT IN REACH.
--- NOTE | 2024-06-30 23:15 | NUR ---
PT RESTING IN BED WITH EYES CLOSED. RESPIRATIONS EVEN. CALL LIGHT IN REACH.
[2024-07-01] VITALS (8 sets, daily range): BP systolic 113–139; BP diastolic 65–83
--- NOTE | 2024-07-01 01:39 | NUR ---
PATIENT IS LYING IN BED WITH EYES CLOSED AND RESPIRATIONS ARE EVEN AND UNLABORED. LIGHT IS ON. URINAL DUMPED OF 375 ML OF YELLOW URINE. CALL LIGHT AND PERSONAL BELONGINGS ARE WITHIN REACH.
--- NOTE | 2024-07-01 03:42 | NUR ---
PT RESTING IN BED WITH EYES CLOSED. RESPIRATIONS EVEN. CALL LIGHT IN REACH.
--- NOTE | 2024-07-01 05:31 | NUR ---
PT RESTING WITH EYES CLOSED. AWAKENS EASILY. VS AND I&O OBTAINED. NO C/O PAIN AT THIS TIME. PT DENIES NEEDS. CALL LIGHT IN REACH.
--- NOTE | 2024-07-01 06:51 | NUR ---
CALL LIGHT ANSWERED. PT UP TO BR WITH FWW AND 1-2PA TO VOID AND HAVE XXL SOFT BM. GAIT WEAK. STAFF ASSIST WITH MAHESH CARE. BACK TO RECLINER. BLE ELEVATED. FRESH WATER PROVIDED. NO FURTHER NEEDS. CALL LIGHT IN REACH.
--- NOTE | 2024-07-01 07:10 | NUR ---
REPORT REC'D FROM MEMO DIAZ. PT RESTING IN RECLINER WITHOUT C/O
[2024-07-01] MEDS ORDERED: predniSONE 10 MG TAB PO ONE (09:00)
--- NOTE | 2024-07-01 10:11 | NUR ---
PATIENT IN CHAIR AT THIS TIME. TAX REPRESENTATIVE CHARTED VITALS AND I&'OS. CALL LIGHT WITHIN REACH. NOTHING ELSE NEEDED AT THIS TIME.
--- NOTE | 2024-07-01 10:42 | NUR ---
PT NOT AVAILABLE FOR VISIT. PROVIDED PRAYER.
--- NOTE | 2024-07-01 11:15 | NUR ---
In and spoke with Rbavo. He states he feels stronger and was able to do ramp with pt. He cont. to plan to go home. I asked if he would want to go to a SNF and he denies. He would like to cont. to work with PT for a day or so as he feels he is improving. He has a sponge to squeez in his r hand and states this is also much better.
--- NOTE | 2024-07-01 11:39 | NUR ---
[facility] VOCATIONAL REHAB CONSULTANT CHARTED BLOOD SUGARS. CALL LIGHT WITH IN REACH. NOTHING ELSE NEEDED AT THIS TIME.
--- NOTE | 2024-07-01 13:41 | NUR ---
PT SITTING UP IN CHAIR, DOING LEG EXERCISES. TOLERATING PO. CALL ALMODOVAR IN REACH, NO NEEDS VERBALIZED AT THIS TIME
--- NOTE | 2024-07-01 14:19 | NUR ---
PATIENT IN CHAIR AT THIS TIME. HEALTH OCCUPATIONS TEACHER CHARTED VITALS AND i&O'S. CALL LIGHT WITHIN REACH. NOTHING ELSE NEEDED AT THIS TIME.
--- NOTE | 2024-07-01 14:59 | NUR ---
LEFT MESSAGE FOR [facility] WITH [facility] REGARDING SWINGBED AUTHORIZATION.
--- NOTE | 2024-07-01 15:10 | NUR ---
PT WORKING WITH OT, FAMILY AT BEDSIDE. PT NO C/O AT THIS TIME.
--- NOTE | 2024-07-01 15:59 | NUR ---
RN PROVIDED KPAD FOR BACK PAIN. SET AT 100 DEGREES. PT EDUCATED ON USE AND TEMPERATURE
--- NOTE | 2024-07-01 16:00 | NUR ---
Received a call from pts insurance, [employer]. They state they would just need to be notified if pt requires Swing Bed.
--- NOTE | 2024-07-01 16:32 | NUR ---
Received a call from ENZO Chawla from ortho clinic. She saw pt and feels he will most likely need a couple more days with therapy and then be able to go home. She has discussed with PT/OT. I also asked her about a referral to [facility] for pts continued back pain. She will review her notes as they may have already done so. She is willing to refer him on. She does states [facility] is scheduling referals into October at this time.
--- NOTE | 2024-07-01 16:55 | NUR ---
PATIENT IN BED AT THIS TIME.CHEMICAL ENGINEERING TEACHER CHARTED BLOOD SUGAR. CALL LIGHT WITH IN REACH. NOTHING ELSE NEEDED AT THIS TIME.
--- NOTE | 2024-07-01 18:02 | NUR ---
PATIENT IN CHAIR AT THIS TIME. AERIAL PHOTOGRAMMETRIST CHARTED VITALS AND I&O'S. CALL LIGHT WITH IN REACH. NOTHING ELSE NEEDED AT THIS TIME.
--- NOTE | 2024-07-01 18:29 | NUR ---
PT REMAINED UP IN CHAIR T/O SHIFT. PT MEDICATED X 2 WITH NORCO FOR BACK DISCOMFORT. PT PROVIDED KPAD, WHICH HE STATES IS HELPING. OFFERED PAIN MEDICATION PRIOR TO END OF SHIFT, BUT WOULD LIKE TO WALK ONE ADDITIONAL TIME AND WILL TAKE MEDICATION PRIOR TO BEDTIME. PT FAMILY AT BEDSIDE T/O EVENING. PT SPOUSE BROUGHT STARDang LeCKS COFFEE TREAT, GLUCOSE 300 AT 1700, DISCUSSED SUGAR CONTENT WITH PATIENT. RECEIVED 7 UNITS OF INSULIN. DSG REMAIN CD&I
--- NOTE | 2024-07-01 19:38 | NUR ---
REPORT RECEIVED FROM DAY SHIFT RN. PT SITTING IN RECLINER ALERT AND ORIENTED. DENIES NEEDS. WHITE BOARD UPDATED. CALL LIGHT IN REACH.
--- NOTE | 2024-07-01 20:21 | NUR ---
PT IN RECLINER WITH EYES CLOSED. AWAKENS EASILY. 2PA WITH FWW BACK TO BED. GAIT WEAK. PT STIFF AFTER SITTING. EVENING ASSESSMENT COMPLETE. SCHEDULED MEDS ADMIN PER EMAR. PT REPORTS 6/10 BACK PAIN. PRN FOR PAIN ADMIN PER EMAR. NO C/O NAUSEA. BILAT KNEE DRESSINGS CLEAN DRY INTACT. SCD'S IN PLACE. VS AND I&O OBTAINED. NO FURTHER NEEDS. CALL LIGHT IN REACH.
[2024-07-01] MEDS ORDERED: ASPIRIN 325 MG TAB PO SCH (21:00)
--- NOTE | 2024-07-01 23:49 | NUR ---
PT AWAKE IN BED. URINAL EMPTIED. FRESH WATER PROVIDED. NO FURTHER NEEDS.
--- NOTE | 2024-07-02 01:37 | NUR ---
PT RESTING IN BED WITH EYES CLOSED. RESPIRATIONS EVEN. CALL LIGHT IN REACH.
--- NOTE | 2024-07-02 03:18 | NUR ---
PT RESTING IN BED WITH EYES CLOSED. RESPIRATIONS EVEN. CALL LIGHT IN REACH.
[2024-07-02 05:47] VITALS: BP 112/73
[2024-07-02 05:51] VITALS: BP 112/73
--- NOTE | 2024-07-02 05:53 | NUR ---
PT RESTING WITH EYES CLOSED. AWAKENS EASILY. VS AND I&O OBTAINED. PT REPORTS BACK PAIN TOLERABLE 11/04. DENIES PRN FOR PAIN WHEN OFFERED. NO NEEDS AT THIS TIME. CALL LIGHT IN REACH.
--- NOTE | 2024-07-02 06:26 | NUR ---
CALL LIGHT ANSWERED. PT UP TO BR WITH FWW AND 2PA TO VOID AND HAVE LARGE SOFT BM. STAFF ASSIST WITH MAHESH CARE. BACK TO RECLINER, DIYA WELL. NO FURTHER NEEDS. CALL LIGHT IN REACH.
--- NOTE | 2024-07-02 07:49 | NUR ---
RECEIVED REPORT FROM ROSA MARIA RN. PT RESTING AT THIS TIME. ALLOWED TO SLEEP STILL AT THIS TIME. CALL LIGHT WITHIN REACH.
--- NOTE | 2024-07-02 08:48 | NUR ---
PATIENT WAS IN HIS CHAIR AT THIS TIME, READY FOR BREAKFAST. CALL LIGHT WITH IN REACH. NOTHING ELSE NEEDED AT THIS TIME.
[2024-07-02] MEDS ORDERED: CELECOXIB 200 MG CAP PO SCH (09:00)
--- NOTE | 2024-07-02 10:00 | NUR ---
Spoke with Preston. Pt cont. to work with PT/OT. They feel he needs more therapy before a safe dc to home. Cammy from ortho will be in later today to see this pt.
[2024-07-02 10:11] VITALS: BP 105/62
--- NOTE | 2024-07-02 10:15 | NUR ---
PATIENT IN CHAIR AT THIS TIME. CAMERA CONTROL OPERATOR CHARTED VITALS AND I&O'S. CALL LIGHT WITH IN REACH, NOTHING ELSE NEEDED AT THIS TIME.
[2024-07-02 11:48] VITALS: BP 105/62
--- NOTE | 2024-07-02 11:52 | NUR ---
PATIENT IN CHAIR AT THIS TIME. ELECTROMECHANICAL EQUIPMENT TESTER CHARTED BLOOD SUGAR LEVELS. CALL LIGHT WITHIN REACH. NOTHING ELSE NEEDED AT THIS TIME.
--- NOTE | 2024-07-02 13:11 | NUR ---
Spoke with Cammy and she would like to make this pt a Swingbed patient. She has the orders in hand. She will return later today.
[2024-07-02 13:47] VITALS: BP 120/66
--- NOTE | 2024-07-02 13:54 | NUR ---
PATIENT IN CHAIR AT THIS TIME, INTERNET RETAILER CHARTED VITALS AND I&O'S. CALL LIGHT WITH IN REACH. NOTHING ELSE NEEDED AT THIS TIME.
--- NOTE | 2024-07-02 14:20 | NUR ---
UPDATED CLINICALS WITH REQUEST FOR TRANSITIONAL CARE AUTH FAXED TO [facility] FOR REVIEW. FAX CONFIRMATION RECVD 07/02/24 @ 6842.
--- NOTE | 2024-07-02 15:35 | NUR ---
PATIENT WAS IN HIS CHAIR AT THIS TIME. KIT PLANNER'S HELPED AMBULATE WITH WALKER TO THE SHOWER, WE WRAPPED HIS LEGS AND IV AREA ON ARM. ASSISTED IN SHOWERING AND SHAVING HIS FACE. RN ASSESED AFTER SHOWER. KIT PLANNER'S ASSISTED WITH WALKER BACK TO THE CHAIR. CALL LIGHT WITH IN REACH, NOTHING ELSE NEEDED AT THIS TIME.
[2024-07-02] MEDS ORDERED: HYDROCODON-ACE1 EA11 PO (16:03)
--- NOTE | 2024-07-02 16:15 | NUR ---
NOtified by Cammy from ortho she is discharging pt and admitting for Swingbed. Possible stay of up to 2 weeks for strengthening. Nicole in admitting notified and will make a swingbed chart.
[2024-07-02] MEDS ORDERED: HYDROCODONE/ACETA 7.5/325 TAB PO PRN (17:00)
[2024-07-02] MEDS ORDERED: GABAPENTIN 300 MG CAP PO SCH (21:00)
[2024-07-02] MEDS ORDERED: CITALOPRAM HYDROBROMIDE 20 MG TAB PO SCH (21:00)
[2024-07-02] MEDS ORDERED: ASPIRIN 325 MG TAB PO SCH (21:00)
[2024-07-02] MEDS ORDERED: AMOXICILLIN 500 MG HOME.PACK PO SCH (21:00)
[2024-07-02] MEDS ORDERED: NYSTATIN OINTMENT 15GM TUBE TOP SCH (21:00)
[2024-07-02] MEDS ORDERED: MELATONIN 3 MG TAB PO SCH (21:00)
[2024-07-03] MEDS ORDERED: CELECOXIB 200 MG CAP PO SCH (09:00)
[2024-07-03] MEDS ORDERED: EMPAGLIFLOZIN 10 MG TAB PO SCH (09:00)
== END 2024-07-02 16:15 | disposition swing bed (61) | DRG 909 ==
LOC: ED 15:04 → MS 16:30
PROVIDERS: Emergency Medicine; Student in an Organized Health Care Education/Training Program; ADMIT Specialist; ATTEND Specialist
PROC: 0JDN0ZZ Extraction of Right Lower Leg Subcutaneous Tissue and Fascia, Open Approach (ICD-10-PCS; principal; 2024-06-28)
PROC: 0JDP0ZZ Extraction of Left Lower Leg Subcutaneous Tissue and Fascia, Open Approach (ICD-10-PCS; 2024-06-28)
DX: T81.31XA Disruption of external operation (surgical) wound, not elsewhere classified, initial encounter (principal); E11.9 Type 2 diabetes mellitus without complications; I10 Essential (primary) hypertension; M10.9 Gout, unspecified; Z96.643 Presence of artificial hip joint, bilateral; M46.46 Discitis, unspecified, lumbar region; I25.10 Atherosclerotic heart disease of native coronary artery without angina pectoris; Z96.653 Presence of artificial knee joint, bilateral; I95.9 Hypotension, unspecified; M17.0 Bilateral primary osteoarthritis of knee; F39 Unspecified mood [affective] disorder; E78.5 Hyperlipidemia, unspecified; Z79.899 Other long term (current) drug therapy; Z79.891 Long term (current) use of opiate analgesic; Z79.4 Long term (current) use of insulin; Z79.84 Long term (current) use of oral hypoglycemic drugs; Z79.811 Long term (current) use of aromatase inhibitors; Z79.01 Long term (current) use of anticoagulants; Z87.440 Personal history of urinary (tract) infections
CPT/HCPCS: 00400; 36415; 73560; 80048; 80053; 83735; 85025; 93005; 93010; 94762; 96374; 97110; 97116; 97162; 97166; 97530; 97535; 99285-25; A9270; J0131; J0330; J0690; J1815; J1885; J2003; J2371; J2405; J2704; J3010; J3490; J7512

== ENCOUNTER 2024-07-08 10:14 | Inpatient (IN) | payer OTHER ==
[~2024-07-08] VITALS: Ht 177.8 cm; Wt 116.5 kg
--- NOTE | 2024-07-08 10:00 | NUR ---
Pt changed from Swingbed to IP for transfer to [facility] for further workup for back infection. Pt to see a spinal surgeon and Infectious disease. Pt wanting to transfer as he feels his knees have healed, but he cont. to have worsening back pain.
--- NOTE | 2024-07-08 11:13 | NUR ---
VISITED DURING SPIRITUAL CARE ROUNDS. PT IN OVERALL GOOD SPIRITS, TALKED OF LIFE EVENTS, INCLUDING RECENT INFECTION AND TREATMENT JOURNEY, IMMINENT LOSS OF LONG-TIME PET, RELAYED INFORMATION FROM CARE TEAM REGARDING TREATMENT PLAN FOR BACK. PT DISPLAYED RESILIENCY THROUGH INTENT TO ADDRESS EACH CHALLENGE IT COMES, EXPRESSED KINGA AND SPIRITUAL PRACTICE SOURCE OF STRENGTH. DIRECTOR OF ACQUISITION MARKETING PROVIDED SUPPORTIVE PRESENCE, HOSPITALITY, ROSARY, PRAYER. PT EXPRESSED GRATITUDE, HOPE.
[2024-07-08] MEDS ORDERED: HYDROCODONE/ACETA 7.5/325 TAB PO PRN (11:30)
--- NOTE | 2024-07-08 13:00 | NUR ---
called dr morgan regarding dc to [facility]. filled out paperwork as directed and placed copy in chart
[2024-07-08 13:35] VITALS: BP 144/71
--- NOTE | 2024-07-08 13:36 | NUR ---
PT UPDATED ON TRANSPORT TIME. PERSONAL ITEMS GATHERED FOR TRANSPORT, HIS IS TAKING CHOSED ITEMS HOME
--- NOTE | 2024-07-08 13:57 | NUR ---
REPORT CALLED TO RECEIVEING RN. SL REMAINS IN R FA, NURSE NOTIFIED.
[2024-07-08] MEDS ORDERED: GABAPENTIN 300 MG CAP PO SCH (15:00)
[2024-07-08] MEDS ORDERED: AMOXICILLIN 500 MG CAP PO SCH (15:00)
[2024-07-08] MEDS ORDERED: ACETAMINOPHEN 500 MG TAB PO SCH (15:00)
[2024-07-08] MEDS ORDERED: methocarbamoL 500 MG TABLET PO SCH (15:00)
[2024-07-08] MEDS ORDERED: NYSTATIN OINTMENT 15GM TUBE TOP SCH (21:00)
[2024-07-08] MEDS ORDERED: MELATONIN 3 MG TAB PO SCH (21:00)
[2024-07-08] MEDS ORDERED: SENNOSIDES 1 TAB PO SCH (21:00)
[2024-07-08] MEDS ORDERED: CITALOPRAM HYDROBROMIDE 20 MG TAB PO SCH (21:00)
[2024-07-08] MEDS ORDERED: ASPIRIN 325 MG TAB PO SCH (21:00)
[2024-07-08] MEDS ORDERED: MICONAZOLE NITRATE 1 EA BTL TOP SCH (21:00)
[2024-07-09] MEDS ORDERED: EMPAGLIFLOZIN 10 MG TAB PO SCH (09:00)
[2024-07-09] MEDS ORDERED: GLIMEPIRIDE 2 MG TAB PO SCH (09:00)
[2024-07-09] MEDS ORDERED: methylPREDNISolone 4 MG TAB PO SCH (09:00)
[2024-07-10] MEDS ORDERED: methylPREDNISolone 4 MG TAB PO SCH (09:00)
[2024-07-17] MEDS ORDERED: methylPREDNISolone 4 MG TAB PO SCH (09:00)
== END 2024-07-08 13:51 | disposition short-term general hospital (02) | DRG 540 ==
LOC: MS 10:14
PROVIDERS: ADMIT Specialist; ATTEND Specialist
DX: M46.26 Osteomyelitis of vertebra, lumbar region (principal); N39.0 Urinary tract infection, site not specified; M51.369 Other intervertebral disc degeneration, lumbar region without mention of lumbar back pain or lower extremity pain; Z91.048 Other nonmedicinal substance allergy status; M10.9 Gout, unspecified
CPT/HCPCS: A9270; J7509